=== PATIENT | female | born 1990 | race Caucasian/White ===

== ENCOUNTER 2019-01-19 00:41 | Emergency (ER) | payer OTHER, MEDICAID, SELFPAY ==
[2019-01-19 00:50] VITALS: BP 129/86; PULSE 84; RESP 16; TEMP 36.9; O2SAT 100; BMI 43.2
[2019-01-19] MEDS: METOCLOPRAMIDE 10 MG/2 ML INJ IV (01:33)
[2019-01-19] MEDS: SODIUM CHLORIDE 0.9% 1,000 ML 1000 ML IV (01:36)
[2019-01-19] MEDS: PANTOPRAZOLE 40 MG VIAL IV (01:36)
[2019-01-19 01:40] LABS: Add Manual Diff / Slide Review NO; Basophils Absolute Auto 100 /uL (0-100); Basophils Percent Auto 0.8 % (0-2); Eosinophils Absolute Auto 300 /uL (0-450); Eosinophils Percent Auto 3.4 % (2-4); Hematocrit 43.3 % (36-46); Hemoglobin 14.6 g/dL (12.0-16.0); Lymphocytes Absolute Auto 2200 /uL (1100-4500); Lymphocytes Percent Auto 25.5 % (25-40); Mean Corpuscular HGB Conc 33.8 % (30-36); Mean Corpuscular Hemoglobin 29.7 PG (26-34); Mean Corpuscular Volume 87.9 fL (80-100); Monocytes Absolute Auto 800 /uL (0-900); Monocytes Percent Auto 9.2 % (3-14); Neutrophils Absolute Auto 5300 /uL (1500-7000); Neutrophils Percent Auto 61.1 % (50-75); Platelet Count 227 X10^3/uL (150-400); Red Blood Cell Count 4.92 X10^6/uL (4.0-5.2); Red Cell Distribution Width 13.8 % (11.6-14.8); White Blood Cell Count 8.7 X10^3/uL (4.5-11.0)
--- NOTE | 2019-01-19 01:49 | ED_ITS ---
HPI - Nausea/Vomiting/Diarrhea General Chief complaint: Nausea/Vomiting/Diarrhea Stated complaint: N/V DEHYDRATED X6 DAYS Time Seen by Provider: 01/19/19 00:58 Source: patient and old records reviewed Mode of arrival: ambulatory Limitations: no limitations History of Present Illness HPI Narrative: Patient is a 29-year-old female who was diagnosed with gastroenteritis on 01/16/2019 by her PCP. She has been vomiting uncontrollably despite Zofran at home. She has diffuse overall abdominal pain no localization. She has not had fever or chills. No diarrhea. She says she just can't keep anything down in her throat feels like multiple sawdust drier sheets on inside. No one else is sick home. 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 MD complaint: nausea and vomiting Onset (ago): day(s) (5) Description of Vomiting: bilious Description of Diarrhea: none Associated Abdominal Pain: Yes Location of pain: diffuse Severity: moderate Quality: cramping Related Data Previous Rx's Medication Instructions Recorded metoclopramide HCl 5 mg PO Q8HR PRN #10 tab 01/19/19 Allergies Allergy/AdvReac Type Severity Reaction Status Date / Time iodine Allergy Verified 01/19/19 01:21 ketorolac [From Toradol] Allergy Verified 01/19/19 01:21 Sulfa (Sulfonamide Allergy Verified 01/19/19 01:21 Antibiotics) Review of Systems Review of Systems GENERAL: Denies chills, fatigue, malaise, fever, sweats, travel HEENT: Denies sinus pain, ear pain, sore throat, difficulty swallowing, neck pain RESPIRATORY: Denies dyspnea, cough, wheezing, hemoptysis, sputum. CARDIOVASCULAR: Denies chest pain, palpitations, orthopnea, edema GASTROINTESTINAL: See HPI : Denies dysuria, frequency, incontinence, hematuria, urinary retention, flank pain. MUSCULOSKELETAL: Denies weakness, joint pain, or bony pain SKIN: No rash, no erythema, no pruritus NEUROLOGIC: Denies weakness, dizziness, headache, numbness, change in speech, confusion PSYCHIATRIC: No concerning psychosocial issues. 12 point review of systems is negative except for those stated above and HPI [facility] Medical History Depression (Acute) Raynaud disease (Acute) Social History Smoking Status: Never smoker Social History Smoking Status: Never smoker Exam Initial Vital Signs Initial Vital Signs: Vital Signs Temperature 98.5 F 01/19/19 00:50 Pulse Rate 84 01/19/19 00:50 Respiratory Rate 16 01/19/19 00:50 Blood Pressure 129/86 01/19/19 00:50 Pulse Oximetry 100 01/19/19 00:50 GENERAL: Overweight well-appearing young female very talkative and in no acute distress. HEENT: Head atraumatic,EOMI, pupils reactive, CARDIOVASCULAR: Regular rate and rhythm without murmurs, rubs or gallops. RESPIRATORY: Breath sounds equal bilaterally, no wheezes rales or rhonchi. ABDOMEN: Soft, obese slight epigastric tenderness no guarding no rebound no lower abdominal pain EXTREMITIES: Normal range of motion, no clubbing or edema. Neurovascularly intact NEUROLOGICAL: Alert and oriented x4.Normal gait and speech. Cranial nerves II through XII grossly intact. SKIN: Warm, dry, no laceration, no petechiae, no rashes or lesions. Course Orders Ordered: ED Orders 01/19/19 01:05 Complete Blood Count AUTO DIFF Stat Comprehensive Metabolic Panel Stat Lipase Stat Discontinued Medications Sodium Chloride (Normal Saline 0.9%) 1,000 mls @ 1,000 mls/hr IV CONT BRANDI Last Infusion: 01/19/19 02:40 Dose: 1,000 mls/hr Admin: 01/19/19 01:36 Dose: 1,000 mls/hr Ketorolac Tromethamine (Toradol) 30 mg IV NOW ONE Stop: 01/19/19 01:20 Last Admin: 01/19/19 01:37 Dose: Not Given Metoclopramide HCl (Reglan) 10 mg IV NOW ONE Stop: 01/19/19 01:23 Last Admin: 01/19/19 01:33 Dose: 10 mg Ondansetron HCl (Zofran) 4 mg IV NOW ONE Stop: 01/19/19 01:20 Last Admin: 01/19/19 01:37 Dose: Not Given Pantoprazole Sodium (Protonix) 40 mg IV NOW ONE Stop: 01/19/19 01:20 Last Admin: 01/19/19 01:36 Dose: 40 mg Vital Signs - 8 hr 01/19/19 00:50 01/19/19 02:40 Temperature 98.5 F Pulse Rate 84 73 Respiratory Rate 16 16 Blood Pressure 129/86 129/86 Pulse Oximetry 100 100 MDM - Nausea/Vomiting/Diarrhea Lab Data Attestation: I reviewed the patient's lab results. Result diagrams: 01/19/19 01:05 01/19/19 01:05 Lab Results 01/19/19 01/19/19 Range/Units 01:05 01:05 WBC 8.7 (4.5-11.0) X10^3/uL RBC 4.92 (4.0-5.2) X10^6/uL Hgb 14.6 (12.0-16.0) g/dL Hct 43.3 (36-46) % MCV 87.9 (80-100) fL MCH 29.7 (26-34) PG MCHC 33.8 (30-36) % RDW 13.8 (11.6-14.8) % Plt Count 227 (150-400) X10^3/uL Neut % (Auto) 61.1 (50-75) % Lymph % (Auto) 25.5 (25-40) % [place] % (Auto) 9.2 (3-14) % Eos % (Auto) 3.4 (2-4) % Baso % (Auto) 0.8 (0-2) % Neut # (Auto) 5300 (0935-0686) /uL Lymph # (Auto) 2200 (7529-4480) /uL [place] # (Auto) 800 (0-900) /uL Eos # (Auto) 300 (0-450) /uL Baso # (Auto) 100 (0-100) /uL Sodium 142 (137-145) mmol/L Potassium 4.0 (3.4-5.1) mmol/L Chloride 104 (98-107) mmol/L Carbon Dioxide 28 (22-32) mmol/L BUN 14 (7-17) mg/dL Creatinine 1.00 (0.52-1.04) mg/dL Estimated GFR > 60.0 (>60) mL/min BUN/Creatinine Ratio 14.0 (6-22) Glucose 88 (70-100) mg/dL Calcium 9.2 (8.4-10.2) mg/dL Total Bilirubin 0.3 (0.2-1.3) mg/dL AST 26 (14-36) IU/L ALT 37 (9-52) IU/L Alkaline Phosphatase 62 (38-126) U/L Total Protein 7.5 (6.3-8.2) g/dL Albumin 4.3 (3.5-5.0) g/dL Globulin 3.2 (1.7-4.1) g/dL Albumin/Globulin Ratio 1.3 (1.0-2.8) Lipase 30 (23-300) U/L MDM Narrative Medical decision making narrative: PATIENT OVERALL FEELING MUCH BETTER AFTER REGLAN AND PROTONIX. TOLERATING ORAL FLUIDS. THERE IS NO SIGN OF DEHYDRATION AND HYPOKALEMIA DESPITE THE AMOUNT THAT SHE STATES SHE IS VOMITING. AT THIS TIME I SEE NO NEED FOR FURTHER IMAGING OR TESTING. The patient had negative UA and negative urine 2 days according to records which I reviewed myself, unfortunately no urine documented this visit, despite it being ordered. History signs and symptoms correlate with gastroenteritis. Discharge Plan Departure Patient Disposition: Home Clinical Impression: Gastroenteritis Discharge Date/Time: 01/19/19 02:35 Interventions: ED Discharge Assessment Last Done: 01/19/19 02:40 Instructions: DI for Dehydration -- Adult, DI for Viral Gastroenteritis -- Adult Activity Restrictions/Additional Instructions: 1) You have been diagnosed with gastroenteritis 2) What to do: Drink frequent but small amounts of fluids. I recommend Gatorade or a Gatorade-like product, as it has small amounts of sugar and salts that improve fluid retention. 3) Take medications as directed -Reglan 5 mg every 8 hours if needed for nausea vomiting 4) Follow up with your primary care provider in 2-3 days [and follow up with ortho, urology etc] 5) Return to ER if you should have any new or worsening symptoms such as, unable to hold down fluids despite use of anti-nausea medications and the small volume oral rehydration strategy. Prescriptions: New metoclopramide HCl 5 mg tablet 5 mg PO Q8HR PRN (Reason: nausea and vomiting) Qty: 10 RF: 0
[2019-01-19 01:58] LABS: Alanine Aminotransferase 37 IU/L (9-52); Albumin 4.3 g/dL (3.5-5.0); Albumin Globulin Ratio 1.3 (1.0-2.8); Alkaline Phosphatase 62 U/L (38-126); Aspartate Aminotransferase 26 IU/L (14-36); Bilirubin Total 0.3 mg/dL (0.2-1.3); Blood Urea Nitrogen 14 mg/dL (7-17); Calcium 9.2 mg/dL (8.4-10.2); Carbon Dioxide 28 mmol/L (22-32); Chloride 104 mmol/L (98-107); Estimated Glomerular Filt Rate > 60.0 mL/min (>60); Globulin 3.2 g/dL (1.7-4.1); Glucose 88 mg/dL (70-100); HEMOLYSIS < 15 (0-50); Lipase 30 U/L (23-300); Sodium 142 mmol/L (137-145); Total Protein 7.5 g/dL (6.3-8.2)
[2019-01-19 02:40] VITALS: BP 129/86; PULSE 73; RESP 16; O2SAT 100
== END 2019-01-19 02:35 | disposition home or self-care (01) ==
PROVIDERS: Emergency Provider Emergency Medicine
DX: K52.9 Noninfective gastroenteritis and colitis, unspecified (principal)
CPT/HCPCS: 36591; 80053; 83690; 85025; 96361; 96374; 96375; 99283; 99284; C9113; J2765

== ENCOUNTER 2019-03-13 22:17 | Emergency (ER) | payer OTHER, MEDICAID, SELFPAY ==
[2019-03-13 22:28] VITALS: BP 147/65; PULSE 98; RESP 15; TEMP 37.3; O2SAT 99; BMI 44.6
--- NOTE | 2019-03-13 22:35 | ED.NAVMDI ---
HPI - Nausea/Vomiting/Diarrhea General Chief complaint: Nausea/Vomiting/Diarrhea Stated complaint: COUGH, CONGESTION, VOMITING Time Seen by Provider: 03/13/19 22:21 Source: patient and family Mode of arrival: ambulatory Limitations: no limitations History of Present Illness HPI Narrative: 29-year-old female nonsmoker, otherwise healthy presents with a chief complaint multiple episodes of vomiting over the past few days she has blood-streaked emesis. She feels a bit fatigued and is lightheaded when she stands. She denies fever or shaking chills. She denies any history of liver, esophageal varices, blood thinners for heavy alcohol. She has no history of ulcers or gastritis. She does not take any significant NSAIDs. MD complaint: nausea Onset (ago): day(s) Description of Vomiting: blood-streaked Description of Diarrhea: none Severity: moderate Quality: cramping Relieving factors: none Exacerbating factors: eating Associated symptoms: nausea/vomiting Related Data Previous Rx's Medication Instructions Recorded metoclopramide HCl 5 mg PO Q8HR PRN #10 tab 01/19/19 ondansetron 4 mg PO TID-QID PRN #10 tab 03/14/19 promethazine-codeine 5 ml PO Q4-6H PRN #118 ml 03/14/19 Allergies Allergy/AdvReac Type Severity Reaction Status Date / Time iodine Allergy Verified 03/13/19 22:32 ketorolac [From Toradol] Allergy Verified 03/13/19 22:32 Sulfa (Sulfonamide Allergy Verified 03/13/19 22:32 Antibiotics) Review of Systems Constitutional Denies chills, Denies fever(s), Denies lethargy and Denies weakness Eyes Denies change in vision, Denies eye discharge, Denies irritation and Denies loss of vision ENT Ears, Nose, Mouth, and Throat: Denies change in voice, Denies neck pain and Denies sore throat Cardiovascular Denies chest pain, Denies irregular heart rhythm, Denies lightheadedness, Denies palpitations, Denies dyspnea, Denies dyspnea on exertion and Denies orthopnea Respiratory Denies cough, Denies dyspnea, Denies dyspnea on exertion and Denies wheezing Gastrointestinal Gastrointestinal: Denies abdominal pain, Denies change in bowel habits, Denies diarrhea, Reports nausea and Reports vomiting Genitourinary Denies hematuria, Denies flank pain, Denies urinary incontinence and Denies urinary urgency Musculoskeletal Denies neck pain Integumentary/Breasts Denies pruritus, Denies erythema, Denies rash and Denies wounds Neurologic Denies confusion, Denies loss of vision and Denies weakness Psychiatric Denies anxiety, Denies confusion, Denies depression, Denies homicidal ideation and Denies suicidal ideation Endocrine Denies palpitations Hematologic/Lymphatic Denies easy bruising Allergic/Immunologic Denies wheezing [facility] Social History Smoking Status: Never smoker Exam Narrative Exam Narrative: GENERAL:29F resting comfortably, no obvious distress HEAD: Atraumatic. Normocephalic. No temporal or scalp tenderness. EYES: Pupils equal round and reactive. Extraocular motions intact. No scleral icterus. No injection or drainage. ENT: Nose without bleeding, purulent drainage or septal hematoma. Throat without erythema, tonsillar hypertrophy or exudate. Uvula midline. Airway patent. NECK: Trachea midline. No JVD or lymphadenopathy. Supple, nontender, no meningeal signs. CARDIOVASCULAR: Regular rate and rhythm without murmurs, gallops, or rubs. RESPIRATORY: Clear to auscultation. Breath sounds equal bilaterally. No wheezes, rales, or rhonchi. GASTROINTESTINAL: Abdomen soft, non-tender, nondistended. No hepato-splenomegaly, or palpable masses. No guarding. EXTREMITIES: No clubbing, cyanosis, or edema. No joint tenderness, effusion, or edema noted. BACK: Nontender without deformity or crepitance. No flank tenderness. NEURO: AOx3. SKIN: No rash or erythema. Initial Vital Signs Initial Vital Signs: Vital Signs Temperature 99.1 F 03/13/19 22:28 Pulse Rate 98 H 03/13/19 22:28 Respiratory Rate 15 03/13/19 22:28 Blood Pressure 147/65 H 03/13/19 22:28 Pulse Oximetry 99 03/13/19 22:28 Course Orders Ordered: ED Orders 03/13/19 22:48 XR acute abdomen series Stat 03/13/19 23:30 Complete Blood Count AUTO DIFF Stat Comprehensive Metabolic Panel Stat Partial Thromboplastin Time Stat Prothrombin Time INR Stat Type and Screen Stat Discontinued Medications Acetaminophen/Codeine Phosphate (Tylenol Oral [place] 120-12 Mg/5 Ml) 10 ml PO NOW ONE Stop: 03/14/19 00:18 Last Admin: 03/14/19 00:34 Dose: 10 ml Sodium Chloride (Normal Saline 0.9%) 1,000 mls @ 1,000 mls/hr IV BOLUS ONE Stop: 03/13/19 23:46 Last Infusion: 03/14/19 00:35 Dose: 0 mls/hr Infusion: 03/13/19 23:33 Dose: 1,000 mls/hr Infusion: 03/13/19 23:20 Dose: 0 mls/hr Admin: 03/13/19 23:20 Dose: 1,000 mls/hr Ondansetron HCl (Zofran) 4 mg IV NOW ONE Stop: 03/13/19 22:48 Last Admin: 03/13/19 23:20 Dose: 4 mg Ondansetron HCl (Zofran Odt Prepack) 1 bottle MISC SEEINSTR ONE Stop: 03/14/19 00:18 Last Admin: 03/14/19 00:34 Dose: 1 bottle Pantoprazole Sodium (Protonix) 40 mg IV NOW ONE Stop: 03/13/19 22:48 Last Admin: 03/13/19 23:20 Dose: 40 mg Vital Signs - 8 hr 03/13/19 22:28 03/14/19 00:38 Temperature 99.1 F Pulse Rate 98 H 92 H Respiratory Rate 15 Blood Pressure 147/65 H 138/86 Pulse Oximetry 99 100 MDM - Nausea/Vomiting/Diarrhea Lab Data Result diagrams: 03/13/19 23:30 03/13/19 23:30 Lab Results 03/13/19 03/13/19 03/13/19 Range/Units 23:30 23:30 23:30 WBC 13.3 H (4.5-11.0) X10^3/uL RBC 5.19 (4.0-5.2) X10^6/uL Hgb 15.2 (12.0-16.0) g/dL Hct 45.7 (36-46) % MCV 88.0 (80-100) fL MCH 29.3 (26-34) PG MCHC 33.3 (30-36) % RDW 13.2 (11.6-14.8) % Plt Count 231 (150-400) X10^3/uL Neut % (Auto) 70.9 (50-75) % Lymph % (Auto) 18.2 L (25-40) % [place] % (Auto) 8.4 (3-14) % Eos % (Auto) 1.8 L (2-4) % Baso % (Auto) 0.7 (0-2) % Neut # (Auto) 9400 H (1368-2359) /uL Lymph # (Auto) 2400 (9689-4600) /uL [place] # (Auto) 1100 H (0-900) /uL Eos # (Auto) 200 (0-450) /uL Baso # (Auto) 100 (0-100) /uL PT 10.3 (10.1-12.7) SECONDS INR 0.9 (0.9-1.3) APTT 33 (26.4-36.2) SECONDS Sodium 139 (137-145) mmol/L Potassium 4.0 (3.4-5.1) mmol/L Chloride 102 (98-107) mmol/L Carbon Dioxide 30 (22-32) mmol/L BUN 14 (7-17) mg/dL Creatinine 0.90 (0.52-1.04) mg/dL Estimated GFR > 60.0 (>60) mL/min BUN/Creatinine Ratio 15.6 (6-22) Glucose 94 (70-100) mg/dL Calcium 9.7 (8.4-10.2) mg/dL Total Bilirubin 0.3 (0.2-1.3) mg/dL AST 21 (14-36) IU/L ALT 16 (9-52) IU/L Alkaline Phosphatase 79 (38-126) U/L Total Protein 7.7 (6.3-8.2) g/dL Albumin 4.4 (3.5-5.0) g/dL Globulin 3.3 (1.7-4.1) g/dL Albumin/Globulin Ratio 1.3 (1.0-2.8) Blood Type Antibody Screen 03/13/19 Range/Units 23:30 WBC (4.5-11.0) X10^3/uL RBC (4.0-5.2) X10^6/uL Hgb (12.0-16.0) g/dL Hct (36-46) % MCV (80-100) fL MCH (26-34) PG MCHC (30-36) % RDW (11.6-14.8) % Plt Count (150-400) X10^3/uL Neut % (Auto) (50-75) % Lymph % (Auto) (25-40) % [place] % (Auto) (3-14) % Eos % (Auto) (2-4) % Baso % (Auto) (0-2) % Neut # (Auto) (4222-7916) /uL Lymph # (Auto) (0770-2751) /uL [place] # (Auto) (0-900) /uL Eos # (Auto) (0-450) /uL Baso # (Auto) (0-100) /uL PT (10.1-12.7) SECONDS INR (0.9-1.3) APTT (26.4-36.2) SECONDS Sodium (137-145) mmol/L Potassium (3.4-5.1) mmol/L Chloride (98-107) mmol/L Carbon Dioxide (22-32) mmol/L BUN (7-17) mg/dL Creatinine (0.52-1.04) mg/dL Estimated GFR (>60) mL/min BUN/Creatinine Ratio (6-22) Glucose (70-100) mg/dL Calcium (8.4-10.2) mg/dL Total Bilirubin (0.2-1.3) mg/dL AST (14-36) IU/L ALT (9-52) IU/L Alkaline Phosphatase (38-126) U/L Total Protein (6.3-8.2) g/dL Albumin (3.5-5.0) g/dL Globulin (1.7-4.1) g/dL Albumin/Globulin Ratio (1.0-2.8) Blood Type A Positive Antibody Screen Negative Discharge Plan Departure Patient Disposition: Home Clinical Impression: Vomiting Qualifiers: Vomiting type: unspecified Vomiting Intractability: non-intractable Nausea presence: with nausea Qualified Code(s): R11.2 - Nausea with vomiting, unspecified Discharge Date/Time: 03/14/19 00:39 Interventions: ED Discharge Assessment Last Done: 03/14/19 00:38 Instructions: DI for Vomiting -- Adult Activity Restrictions/Additional Instructions: *You have been diagnosed with [ cough with vomiting ] *What to do: *Take medications as directed *Follow up with your primary care provider in 2-3 days, call for an appointment. Let them know you were seen in the Emergency Department and that we ask that you be seen in follow up *Return to ER if you should have any new, worsening or concerning symptoms Prescriptions: New ondansetron 4 mg tablet,disintegrating 4 mg PO TID-QID PRN (Reason: nausea and vomiting) Qty: 10 RF: 0 promethazine-codeine 6.25-10 mg/5 mL syrup 5 ml PO Q4-6H PRN (Reason: cough) Qty: 118 RF: 0 No Action metoclopramide HCl 5 mg tablet 5 mg PO Q8HR PRN (Reason: nausea and vomiting) Qty: 10 RF: 0
--- NOTE | 2019-03-13 22:48 | DI.RAD.S_ITS ---
PROCEDURE: XR ACUTE ABDOMEN SERIES INDICATIONS: Abdominal pain TECHNIQUE: One view chest and two views of the abdomen were acquired. COMPARISON: None. FINDINGS: Surgical changes and devices: None. Chest: Lungs are clear. Heart size is normal. No pleural effusions. No pneumoperitoneum. Abdomen: Bowel gas pattern is normal except for mild to moderate colonic obstipation. No suspicious calcifications. Visualized solid organ contours appear normal. Bones: No suspicious bony lesions. IMPRESSION: Normal for age except for mild to moderate colonic obstipation, a definite source of current abdominal pain symptoms is not seen. Dictated by: Gilberto Adame M.D. on 03/14/2019 at 8:14 Approved by: Gilberto Adame M.D. on 03/14/2019 at 8:21
[2019-03-13] MEDS: ONDANSETRON 4 MG/2 ML INJ IV (23:20)
[2019-03-13] MEDS: PANTOPRAZOLE 40 MG VIAL IV (23:20)
[2019-03-13] MEDS: SODIUM CHLORIDE 0.9% 1,000 ML 1000 ML IV (23:20)
[2019-03-13 23:41] LABS: Add Manual Diff / Slide Review NO; Basophils Absolute Auto 100 /uL (0-100); Basophils Percent Auto 0.7 % (0-2); Eosinophils Absolute Auto 200 /uL (0-450); Eosinophils Percent Auto 1.8 % (2-4); Hematocrit 45.7 % (36-46); Hemoglobin 15.2 g/dL (12.0-16.0); Lymphocytes Absolute Auto 2400 /uL (1100-4500); Lymphocytes Percent Auto 18.2 % (25-40); Mean Corpuscular HGB Conc 33.3 % (30-36); Mean Corpuscular Hemoglobin 29.3 PG (26-34); Monocytes Absolute Auto 1100 /uL (0-900); Monocytes Percent Auto 8.4 % (3-14); Neutrophils Absolute Auto 9400 /uL (1500-7000); Neutrophils Percent Auto 70.9 % (50-75); Platelet Count 231 X10^3/uL (150-400); Red Blood Cell Count 5.19 X10^6/uL (4.0-5.2); Red Cell Distribution Width 13.2 % (11.6-14.8); White Blood Cell Count 13.3 X10^3/uL (4.5-11.0)
--- NOTE | 2019-03-13 23:48 | ED_ITS ---
HPI - Nausea/Vomiting/Diarrhea General Chief complaint: Nausea/Vomiting/Diarrhea Stated complaint: COUGH, CONGESTION, VOMITING Time Seen by Provider: 03/13/19 22:21 Source: patient and family Mode of arrival: ambulatory Limitations: no limitations History of Present Illness HPI Narrative: 29-year-old female nonsmoker, otherwise healthy presents with a chief complaint multiple episodes of vomiting over the past few days she has blood-streaked emesis. She feels a bit fatigued and is lightheaded when she stands. She denies fever or shaking chills. She denies any history of liver, esophageal varices, blood thinners for heavy alcohol. She has no history of ulcers or gastritis. She does not take any significant NSAIDs. MD complaint: nausea Onset (ago): day(s) Description of Vomiting: blood-streaked Description of Diarrhea: none Severity: moderate Quality: cramping Relieving factors: none Exacerbating factors: eating Associated symptoms: nausea/vomiting Related Data Previous Rx's Medication Instructions Recorded metoclopramide HCl 5 mg PO Q8HR PRN #10 tab 01/19/19 ondansetron 4 mg PO TID-QID PRN #10 tab 03/14/19 promethazine-codeine 5 ml PO Q4-6H PRN #118 ml 03/14/19 Allergies Allergy/AdvReac Type Severity Reaction Status Date / Time iodine Allergy Verified 03/13/19 22:32 ketorolac [From Toradol] Allergy Verified 03/13/19 22:32 Sulfa (Sulfonamide Allergy Verified 03/13/19 22:32 Antibiotics) Review of Systems Constitutional Denies chills, Denies fever(s), Denies lethargy and Denies weakness Eyes Denies change in vision, Denies eye discharge, Denies irritation and Denies loss of vision ENT Ears, Nose, Mouth, and Throat: Denies change in voice, Denies neck pain and Denies sore throat Cardiovascular Denies chest pain, Denies irregular heart rhythm, Denies lightheadedness, Denies palpitations, Denies dyspnea, Denies dyspnea on exertion and Denies orthopnea Respiratory Denies cough, Denies dyspnea, Denies dyspnea on exertion and Denies wheezing Gastrointestinal Gastrointestinal: Denies abdominal pain, Denies change in bowel habits, Denies diarrhea, Reports nausea and Reports vomiting Genitourinary Denies hematuria, Denies flank pain, Denies urinary incontinence and Denies urinary urgency Musculoskeletal Denies neck pain Integumentary/Breasts Denies pruritus, Denies erythema, Denies rash and Denies wounds Neurologic Denies confusion, Denies loss of vision and Denies weakness Psychiatric Denies anxiety, Denies confusion, Denies depression, Denies homicidal ideation and Denies suicidal ideation Endocrine Denies palpitations Hematologic/Lymphatic Denies easy bruising Allergic/Immunologic Denies wheezing [facility] Social History Smoking Status: Never smoker Exam Narrative Exam Narrative: GENERAL:29F resting comfortably, no obvious distress HEAD: Atraumatic. Normocephalic. No temporal or scalp tenderness. EYES: Pupils equal round and reactive. Extraocular motions intact. No scleral icterus. No injection or drainage. ENT: Nose without bleeding, purulent drainage or septal hematoma. Throat without erythema, tonsillar hypertrophy or exudate. Uvula midline. Airway patent. NECK: Trachea midline. No JVD or lymphadenopathy. Supple, nontender, no meni ngeal signs. CARDIOVASCULAR: Regular rate and rhythm without murmurs, gallops, or rubs. RESPIRATORY: Clear to auscultation. Breath sounds equal bilaterally. No wheezes, rales, or rhonchi. GASTROINTESTINAL: Abdomen soft, non-tender, nondistended. No hepato- splenomegaly, or palpable masses. No guarding. EXTREMITIES: No clubbing, cyanosis, or edema. No joint tenderness, effusion, or edema noted. BACK: Nontender without deformity or crepitance. No flank tenderness. NEURO: AOx3. SKIN: No rash or erythema. Initial Vital Signs Initial Vital Signs: Vital Signs Temperature 99.1 F 03/13/19 22:28 Pulse Rate 98 H 03/13/19 22:28 Respiratory Rate 15 03/13/19 22:28 Blood Pressure 147/65 H 03/13/19 22:28 Pulse Oximetry 99 03/13/19 22:28 Course Orders Ordered: ED Orders 03/13/19 22:48 XR acute abdomen series Stat 03/13/19 23:30 Complete Blood Count AUTO DIFF Stat Comprehensive Metabolic Panel Stat Partial Thromboplastin Time Stat Prothrombin Time INR Stat Type and Screen Stat Discontinued Medications Acetaminophen/Codeine Phosphate (Tylenol Oral Sylwia 120-12 Mg/5 Ml) 10 ml PO NOW ONE Stop: 03/14/19 00:18 Last Admin: 03/14/19 00:34 Dose: 10 ml Sodium Chloride (Normal Saline 0.9%) 1,000 mls @ 1,000 mls/hr IV BOLUS ONE Stop: 03/13/19 23:46 Last Infusion: 03/14/19 00:35 Dose: 0 mls/hr Infusion: 03/13/19 23:33 Dose: 1,000 mls/hr Infusion: 03/13/19 23:20 Dose: 0 mls/hr Admin: 03/13/19 23:20 Dose: 1,000 mls/hr Ondansetron HCl (Zofran) 4 mg IV NOW ONE Stop: 03/13/19 22:48 Last Admin: 03/13/19 23:20 Dose: 4 mg Ondansetron HCl (Zofran Odt Prepack) 1 bottle MISC SEEINSTR ONE Stop: 03/14/19 00:18 Last Admin: 03/14/19 00:34 Dose: 1 bottle Pantoprazole Sodium (Protonix) 40 mg IV NOW ONE Stop: 03/13/19 22:48 Last Admin: 03/13/19 23:20 Dose: 40 mg Vital Signs - 8 hr 03/13/19 22:28 03/14/19 00:38 Temperature 99.1 F Pulse Rate 98 H 92 H Respiratory Rate 15 Blood Pressure 147/65 H 138/86 Pulse Oximetry 99 100 MDM - Nausea/Vomiting/Diarrhea Lab Data Result diagrams: 03/13/19 23:30 03/13/19 23:30 Lab Results 03/13/19 03/13/19 03/13/19 Range/Units 23:30 23:30 23:30 WBC 13.3 H (4.5-11.0) X10^3/uL RBC 5.19 (4.0-5.2) X10^6/uL Hgb 15.2 (12.0-16.0) g/dL Hct 45.7 (36-46) % MCV 88.0 (80-100) fL MCH 29.3 (26-34) PG MCHC 33.3 (30-36) % RDW 13.2 (11.6-14.8) % Plt Count 231 (150-400) X10^3/uL Neut % (Auto) 70.9 (50-75) % Lymph % (Auto) 18.2 L (25-40) % [place] % (Auto) 8.4 (3-14) % Eos % (Auto) 1.8 L (2-4) % Baso % (Auto) 0.7 (0-2) % Neut # (Auto) 9400 H (0595-7911) /uL Lymph # (Auto) 2400 (0929-0861) /uL Norton # (Auto) 1100 H (0-900) /uL Eos # (Auto) 200 (0-450) /uL Baso # (Auto) 100 (0-100) /uL PT 10.3 (10.1-12.7) SECONDS INR 0.9 (0.9-1.3) APTT 33 (26.4-36.2) SECONDS Sodium 139 (137-145) mmol/L Potassium 4.0 (3.4-5.1) mmol/L Chloride 102 (98-107) mmol/L Carbon Dioxide 30 (22-32) mmol/L BUN 14 (7-17) mg/dL Creatinine 0.90 (0.52-1.04) mg/dL Estimated GFR > 60.0 (>60) mL/min BUN/Creatinine Ratio 15.6 (6-22) Glucose 94 (70-100) mg/dL Calcium 9.7 (8.4-10.2) mg/dL Total Bilirubin 0.3 (0.2-1.3) mg/dL AST 21 (14-36) IU/L ALT 16 (9-52) IU/L Alkaline Phosphatase 79 (38-126) U/L Total Protein 7.7 (6.3-8.2) g/dL Albumin 4.4 (3.5-5.0) g/dL Globulin 3.3 (1.7-4.1) g/dL Albumin/Globulin Ratio 1.3 (1.0-2.8) Blood Type Antibody Screen 03/13/19 Range/Units 23:30 WBC (4.5-11.0) X10^3/uL RBC (4.0-5.2) X10^6/uL Hgb (12.0-16.0) g/dL Hct (36-46) % MCV (80-100) fL MCH (26-34) PG MCHC (30-36) % RDW (11.6-14.8) % Plt Count (150-400) X10^3/uL Neut % (Auto) (50-75) % Lymph % (Auto) (25-40) % Norton % (Auto) (3-14) % Eos % (Auto) (2-4) % Baso % (Auto) (0-2) % Neut # (Auto) (1769-5786) /uL Lymph # (Auto) (0805-0582) /uL Norton # (Auto) (0-900) /uL Eos # (Auto) (0-450) /uL Baso # (Auto) (0-100) /uL PT (10.1-12.7) SECONDS INR (0.9-1.3) APTT (26.4-36.2) SECONDS Sodium (137-145) mmol/L Potassium (3.4-5.1) mmol/L Chloride (98-107) mmol/L Carbon Dioxide (22-32) mmol/L BUN (7-17) mg/dL Creatinine (0.52-1.04) mg/dL Estimated GFR (>60) mL/min BUN/Creatinine Ratio (6-22) Glucose (70-100) mg/dL Calcium (8.4-10.2) mg/dL Total Bilirubin (0.2-1.3) mg/dL AST (14-36) IU/L ALT (9-52) IU/L Alkaline Phosphatase (38-126) U/L Total Protein (6.3-8.2) g/dL Albumin (3.5-5.0) g/dL Globulin (1.7-4.1) g/dL Albumin/Globulin Ratio (1.0-2.8) Blood Type A Positive Antibody Screen Negative Discharge Plan Departure Patient Disposition: Home Clinical Impression: Vomiting Qualifiers: Vomiting type: unspecified Vomiting Intractability: non-intractable Nausea presence: with nausea Qualified Code(s): R11.2 - Nausea with vomiting, unspecified Discharge Date/Time: 03/14/19 00:39 Interventions: ED Discharge Assessment Last Done: 03/14/19 00:38 Instructions: DI for Vomiting -- Adult Activity Restrictions/Additional Instructions: *You have been diagnosed with [ cough with vomiting ] *What to do: *Take medications as directed *Follow up with your primary care provider in 2-3 days, call for an appointment. Let them know you were seen in the Emergency Department and that we ask that you be seen in follow up *Return to ER if you should have any new, worsening or concerning symptoms Prescriptions: New ondansetron 4 mg tablet,disintegrating 4 mg PO TID-QID PRN (Reason: nausea and vomiting) Qty: 10 RF: 0 promethazine-codeine 6.25-10 mg/5 mL syrup 5 ml PO Q4-6H PRN (Reason: cough) Qty: 118 RF: 0 No Action metoclopramide HCl 5 mg tablet 5 mg PO Q8HR PRN (Reason: nausea and vomiting) Qty: 10 RF: 0
[2019-03-13 23:50] LABS: INR 0.9 (0.9-1.3); Prothrombin Time 10.3 SECONDS (10.1-12.7)
[2019-03-13 23:52] LABS: PTT Partial Thromboplastin Tim 33 SECONDS (26.4-36.2)
[2019-03-13 23:53] LABS: Alanine Aminotransferase 16 IU/L (9-52); Albumin 4.4 g/dL (3.5-5.0); Albumin Globulin Ratio 1.3 (1.0-2.8); Alkaline Phosphatase 79 U/L (38-126); Aspartate Aminotransferase 21 IU/L (14-36); BUN Creatinine Ratio 15.6 (6-22); Bilirubin Total 0.3 mg/dL (0.2-1.3); Blood Urea Nitrogen 14 mg/dL (7-17); Calcium 9.7 mg/dL (8.4-10.2); Carbon Dioxide 30 mmol/L (22-32); Chloride 102 mmol/L (98-107); Estimated Glomerular Filt Rate > 60.0 mL/min (>60); Globulin 3.3 g/dL (1.7-4.1); Glucose 94 mg/dL (70-100); HEMOLYSIS < 15 (0-50); Sodium 139 mmol/L (137-145); Total Protein 7.7 g/dL (6.3-8.2)
[2019-03-14] MEDS: ONDANSETRON 4 MG ODT PREPACK 1 BOTTLE MISC (00:34)
[2019-03-14] MEDS: ACETAMINOPHEN/CODEINE SOLN 5 ML SOLUTION 10 ML PO (00:34)
[2019-03-14 00:38] VITALS: BP 138/86; PULSE 92; O2SAT 100
== END 2019-03-14 00:39 | disposition home or self-care (01) ==
PROVIDERS: Emergency Provider Emergency Medicine
DX: R11.2 Nausea with vomiting, unspecified (principal)
CPT/HCPCS: 36415; 36591; 74022; 80053; 85025; 85610; 85730; 86850; 86900; 86901; 96361; 96374; 96375; 99283; 99284; C9113; J2405

== ENCOUNTER 2019-03-26 22:24 | Emergency (ER) | payer OTHER, MEDICAID, SELFPAY ==
[2019-03-26 22:34] VITALS: BP 151/105; PULSE 115; RESP 20; TEMP 37.3; O2SAT 100; BMI 42.9
[2019-03-26 22:42] VITALS: PULSE 116; RESP 20; O2SAT 97
[2019-03-26] MEDS: ALBUTEROL 2.5 MG/3 ML NEB (ADULT) INH (22:42)
--- NOTE | 2019-03-27 00:21 | DI.RAD.S_ITS ---
PROCEDURE: XR CHEST 2V INDICATIONS: shortness and cough TECHNIQUE: 2 views of the chest were acquired. COMPARISON: None. FINDINGS: Surgical changes and devices: None. Lungs and pleura: Low lung volumes with scattered subsegmental atelectasis/scarring. No pleural effusions or pneumothorax. Mediastinum: Mediastinal contours are normal. Heart size is normal. Bones and chest wall: No suspicious bony abnormalities. Soft tissues appear unremarkable. IMPRESSION: No acute disease Dictated by: Petros Pickard M.D. on 03/27/2019 at 8:58 Approved by: Petros Pickard M.D. on 03/27/2019 at 9:05
--- NOTE | 2019-03-27 00:24 | ED_ITS ---
HPI - URI/Sore Throat General Chief Complaint: Upper Respiratory Symptoms Stated Complaint: FEVER 105 COUGHING UP SOB Time Seen by Provider: 03/27/19 00:12 Source: patient Mode of arrival: ambulatory History of Present Illness HPI Narrative: Patient is a 29-year-old female presents with coughing on going she says for last 3 weeks. She says she was seen evaluated here on March 14 2019. She was given cough syrup with codeine she says that really has not been helping. She has since been seen by her primary care doctor who started her on Augmentin and prednisone. She says that really isn't helping either it is dry nonproductive. She sometimes has hematemesis after coughing so hard. She feels like she pulled something in her side from coughing so hard. She sometimes coughs so hard that she vomits. In fact she really has been able to keep much down. She has been ordered albuterol by nursing she says that really has not helped her at all she still has a pretty dry nonproductive hacking cough. She says that she has had fever and chills as well. She actually has appointment with her PCP tomorrow. MD Complaint: fever and cough Duration: constant Related Data Previous Rx's Medication Instructions Recorded metoclopramide HCl 5 mg PO Q8HR PRN #10 tab 01/19/19 ondansetron 4 mg PO TID-QID PRN #10 tab 03/14/19 promethazine-codeine 5 ml PO Q4-6H PRN #118 ml 03/14/19 Allergies Allergy/AdvReac Type Severity Reaction Status Date / Time iodine Allergy Verified 03/13/19 22:32 ketorolac [From Toradol] Allergy Verified 03/13/19 22:32 Sulfa (Sulfonamide Allergy Verified 03/13/19 22:32 Antibiotics) Review of Systems Review of Systems GENERAL: Denies chills, fatigue, malaise, fever, sweats, travel HEENT: Denies sinus pain, ear pain, sore throat, difficulty swallowing, neck pain RESPIRATORY: See HPI CARDIOVASCULAR: Denies chest pain, palpitations, orthopnea, edema GASTROINTESTINAL: Denies nausea, vomiting, abdominal pain, diarrhea, constipation, melena. : Denies dysuria, frequency, incontinence, hematuria, urinary retention, flank pain. MUSCULOSKELETAL: Denies weakness, joint pain, or bony pain SKIN: No rash, no erythema, no pruritus NEUROLOGIC: Denies weakness, dizziness, headache, numbness, change in speech, confusion PSYCHIATRIC: No concerning psychosocial issues. 12 point review of systems is negative except for those stated above and HPI [facility] Medical History Depression (Acute) Raynaud disease (Acute) Social History Smoking Status: Never smoker Social History Smoking Status: Never smoker Exam Initial Vital Signs Initial Vital Signs: Vital Signs Temperature 99.2 F 03/26/19 22:34 Pulse Rate 115 H 03/26/19 22:34 Respiratory Rate 20 03/26/19 22:34 Blood Pressure 151/105 H 03/26/19 22:34 Pulse Oximetry 100 03/26/19 22:34 GENERAL: Overweight alert well-appearing female and in no acute distress. HEENT: Head atraumatic,EOMI, pupils reactive, CARDIOVASCULAR: Regular rate and rhythm without murmurs, rubs or gallops. RESPIRATORY: Dry hacking nonproductive cough noted. No obvious respiratory distress ABDOMEN: Soft, nontender. Normoactive bowel sounds all 4 quadrants. No guarding or rebound. EXTREMITIES: Normal range of motion, no clubbing or edema. Neurovascularly intact NEUROLOGICAL: Alert and oriented x4.Normal gait and speech. Cranial nerves II through XII grossly intact. SKIN: Warm, dry, no laceration, no petechiae, no rashes or lesions. Course Orders Ordered: ED Orders 03/27/19 00:21 XR chest 2V Stat 03/27/19 00:50 Complete Blood Count AUTO DIFF Stat Comprehensive Metabolic Panel Stat Discontinued Medications Albuterol (Ventolin) 2.5 mg INH NOW ONE Stop: 03/26/19 22:42 Last Admin: 03/26/19 22:42 Dose: 2.5 mg Albuterol (Ventolin Hfa Prepack) 1 box MISC SEEINSTR ONE Stop: 03/27/19 02:06 Last Admin: 03/27/19 02:06 Dose: 1 box Sodium Chloride (Normal Saline 0.9%) 1,000 mls @ 1,000 mls/hr IV BOLUS ONE Stop: 03/27/19 01:20 Last Infusion: 03/27/19 02:15 Dose: 0 mls/hr Admin: 03/27/19 00:50 Dose: 1,000 mls/hr Methylprednisolone (Solu-Medrol 125 Mg Vial) 125 mg IV NOW ONE Stop: 03/27/19 00:22 Last Admin: 03/27/19 00:50 Dose: 125 mg Vital Signs - 8 hr 03/26/19 22:34 03/26/19 22:42 03/27/19 02:07 Temperature 99.2 F Pulse Rate 115 H 116 H 87 Respiratory Rate 20 20 15 Blood Pressure 151/105 H Blood Pressure [Right Arm] 122/74 Pulse Oximetry 100 97 100 MDM - URI/Sore Throat Lab Data Attestation: I reviewed the patient's lab results. Result diagrams: 03/27/19 00:50 03/27/19 00:50 Lab Results 03/27/19 03/27/19 Range/Units 00:50 00:50 WBC 15.2 H (4.5-11.0) X10^3/uL RBC 5.25 H (4.0-5.2) X10^6/uL Hgb 15.6 (12.0-16.0) g/dL Hct 45.9 (36-46) % MCV 87.4 (80-100) fL MCH 29.6 (26-34) PG MCHC 33.9 (30-36) % RDW 13.7 (11.6-14.8) % Plt Count 254 (150-400) X10^3/uL Neut % (Auto) 64.4 (50-75) % Lymph % (Auto) 25.7 (25-40) % [place] % (Auto) 8.0 (3-14) % Eos % (Auto) 1.3 L (2-4) % Baso % (Auto) 0.6 (0-2) % Neut # (Auto) 9800 H (6267-3165) /uL Lymph # (Auto) 3900 (1939-4408) /uL [place] # (Auto) 1200 H (0-900) /uL Eos # (Auto) 200 (0-450) /uL Baso # (Auto) 100 (0-100) /uL Sodium 142 (137-145) mmol/L Potassium 4.2 (3.4-5.1) mmol/L Chloride 106 (98-107) mmol/L Carbon Dioxide 25 (22-32) mmol/L BUN 20 H (7-17) mg/dL Creatinine 1.10 H (0.52-1.04) mg/dL Estimated GFR 58.3 L (>60) mL/min BUN/Creatinine Ratio 18.2 (6-22) Glucose 83 (70-100) mg/dL Calcium 9.4 (8.4-10.2) mg/dL Total Bilirubin 0.6 (0.2-1.3) mg/dL AST 34 (14-36) IU/L ALT 22 (9-52) IU/L Alkaline Phosphatase 75 (38-126) U/L Total Protein 8.4 H (6.3-8.2) g/dL Albumin 4.5 (3.5-5.0) g/dL Globulin 3.9 (1.7-4.1) g/dL Albumin/Globulin Ratio 1.2 (1.0-2.8) Imaging Data Chest x-ray: Attestation: I personally reviewed and interpreted this imaging study as follows: My impression: No acute cardiopulmonary process MDM Narrative Medical decision making narrative: The patient is obviously having a bronchospastic like cough. She is given albuterol actually did seem to help a fter a while. His she has an appointment with her PCP in the morning. Her heart rate also improved. She was already given prednisone by did give her a dose of the Solu-Medrol. At this time his leukocytosis is likely due to the prednisone that she is on. I do not believe her to have sinus symptoms consistent with pulmonary embolism. Discharge Plan Departure Patient Disposition: Home Clinical Impression: Bronchitis Discharge Date/Time: 03/27/19 02:20 Interventions: ED Discharge Assessment Last Done: 03/27/19 02:19 Instructions: DI for Acute Bronchitis Activity Restrictions/Additional Instructions: *You have been diagnosed with bronchitis *What to do: For x-ray today is clear however I recommend that he finish taking your antibiotics. *Continue to take medications as directed Albuterol inhaler with with spacer 1-2 puffs every 4 hours if needed for coughing spells or shortness of *Follow up with your primary care provider in 2-3 days and follow up with ortho, urology etc *Return to ER if you should have increasing shortness of breath or any new, worsening or concerning symptoms Prescriptions: No Action metoclopramide HCl 5 mg tablet 5 mg PO Q8HR PRN (Reason: nausea and vomiting) Qty: 10 RF: 0 ondansetron 4 mg tablet,disintegrating 4 mg PO TID-QID PRN (Reason: nausea and vomiting) Qty: 10 RF: 0 promethazine-codeine 6.25-10 mg/5 mL syrup 5 ml PO Q4-6H PRN (Reason: cough) Qty: 118 RF: 0
[2019-03-27] MEDS: methylPREDNISolone 125 MG/2 ML VIAL IV (00:50)
[2019-03-27] MEDS: SODIUM CHLORIDE 0.9% 1,000 ML 1000 ML IV (00:50)
[2019-03-27 01:04] LABS: Add Manual Diff / Slide Review NO; Basophils Absolute Auto 100 /uL (0-100); Basophils Percent Auto 0.6 % (0-2); Eosinophils Absolute Auto 200 /uL (0-450); Eosinophils Percent Auto 1.3 % (2-4); Hematocrit 45.9 % (36-46); Hemoglobin 15.6 g/dL (12.0-16.0); Lymphocytes Absolute Auto 3900 /uL (1100-4500); Lymphocytes Percent Auto 25.7 % (25-40); Mean Corpuscular HGB Conc 33.9 % (30-36); Mean Corpuscular Hemoglobin 29.6 PG (26-34); Mean Corpuscular Volume 87.4 fL (80-100); Monocytes Absolute Auto 1200 /uL (0-900); Neutrophils Absolute Auto 9800 /uL (1500-7000); Neutrophils Percent Auto 64.4 % (50-75); Platelet Count 254 X10^3/uL (150-400); Red Blood Cell Count 5.25 X10^6/uL (4.0-5.2); Red Cell Distribution Width 13.7 % (11.6-14.8); White Blood Cell Count 15.2 X10^3/uL (4.5-11.0)
[2019-03-27 01:10] LABS: Chloride 106 mmol/L (98-107)
[2019-03-27 01:13] LABS: Alanine Aminotransferase 22 IU/L (9-52); Albumin 4.5 g/dL (3.5-5.0); Albumin Globulin Ratio 1.2 (1.0-2.8); Alkaline Phosphatase 75 U/L (38-126); Aspartate Aminotransferase 34 IU/L (14-36); BUN Creatinine Ratio 18.2 (6-22); Bilirubin Total 0.6 mg/dL (0.2-1.3); Blood Urea Nitrogen 20 mg/dL (7-17); Calcium 9.4 mg/dL (8.4-10.2); Carbon Dioxide 25 mmol/L (22-32); Estimated Glomerular Filt Rate 58.3 mL/min (>60); Globulin 3.9 g/dL (1.7-4.1); Glucose 83 mg/dL (70-100); Sodium 142 mmol/L (137-145); Total Protein 8.4 g/dL (6.3-8.2)
[2019-03-27 01:15] LABS: HEMOLYSIS 132 (0-50)
[2019-03-27 01:16] LABS: Potassium 4.2 mmol/L (3.4-5.1)
[2019-03-27] MEDS: ALBUTEROL HFA PREPACK 1 BOX MISC (02:06)
[2019-03-27 02:07] VITALS: BP 122/74; PULSE 87; RESP 15; O2SAT 100
== END 2019-03-27 02:20 | disposition home or self-care (01) ==
PROVIDERS: Emergency Provider Emergency Medicine
DX: J40 Bronchitis, not specified as acute or chronic (principal)
CPT/HCPCS: 36591; 71046; 80053; 85025; 94640; 96361; 96374; 99283; 99284; J2930; J7613

== ENCOUNTER 2019-09-22 11:34 | Emergency (ER) | payer OTHER, MEDICAID, SELFPAY ==
[2019-09-22 11:40] VITALS: BP 143/89; PULSE 91; RESP 18; TEMP 36.9; O2SAT 100; BMI 43.2
--- NOTE | 2019-09-22 12:19 | DI.RAD.S_ITS ---
PROCEDURE: XR KNEE RT 3V INDICATIONS: knee pain sp fall TECHNIQUE: 3 views of the knee were acquired. COMPARISON: None. FINDINGS: Bones: No fractures or dislocations. No suspicious bony lesions. Soft tissues: No joint effusion. No suspicious soft tissue calcifications. IMPRESSION: 1. No fracture or dislocation. Dictated by: Sung Rachel M.D. on 09/22/2019 at 11:39 Approved by: Sung Rachel M.D. on 09/22/2019 at 11:40
--- NOTE | 2019-09-22 12:19 | DI.RAD.S_ITS ---
PROCEDURE: XR ANKLE RT MIN 3V INDICATIONS: pain status post fall TECHNIQUE: Pre-views of the ankle were acquired. COMPARISON: None. FINDINGS: Bones: No definite fractures or dislocations. Ankle mortise is normally aligned. No suspicious bony lesions. Soft tissues: No tibiotalar joint effusion. Achilles tendon appears normal. IMPRESSION: 1. No definite fracture or dislocation. Dictated by: Sung Rachel M.D. on 09/22/2019 at 11:40 Approved by: Sung Rachel M.D. on 09/22/2019 at 11:41
[2019-09-22] MEDS: LIDOCAINE/PRILOCAINE 5 GM TOP (13:26)
--- NOTE | 2019-09-22 13:49 | ED_ITS ---
HPI - Extremity Injury (Lower) <LINDA Gonzalez-BC - Last Filed: 09/22/19 21:05> General Chief Complaint: Extremity Injury, Lower Stated Complaint: moved landscaping on slop got cut right side sullivan Time Seen by Provider: 09/22/19 12:11 Source: patient and family Mode of arrival: Wheelchair Limitations: no limitations History of Present Illness HPI Narrative: The patient is a 29-year-old female who presents with a chief complaint of right knee and ankle pain after she fell down a slope while doing landscaping. She complains of a cut and abrasion to the bottom of her right leg. She states she has history of right ankle surgery. She denies any previous injuries to her knee. She has not taken anything for pain or applied ice. She states that she is not sure when her last tetanus was. She denies hitting her head, any neck or back pain. Related Data Previous Rx's Medication Instructions Recorded metoclopramide HCl 5 mg PO Q8HR PRN #10 tab 01/19/19 ondansetron 4 mg PO TID-QID PRN #10 tab 03/14/19 promethazine-codeine 5 ml PO Q4-6H PRN #118 ml 03/14/19 Allergies Allergy/AdvReac Type Severity Reaction Status Date / Time iodine Allergy Hives Verified 09/22/19 11:49 ketorolac [From Toradol] Allergy ITCHING Verified 09/22/19 11:49 Sulfa (Sulfonamide Allergy Hives Verified 09/22/19 11:49 Antibiotics) Review of Systems <RENÉE Gonzalez - Last Filed: 09/22/19 21:05> Review of Systems Narrative: GENERAL: Denies chills, fatigue, malaise, fever, sweats. HEENT: Denies sinus pain, ear pain, sore throat, difficulty swallowing, dizzine ss. RESPIRATORY: Denies dyspnea, cough, wheezing, hemoptysis, sputum. CARDIOVASCULAR: Denies chest pain, palpitations, orthopnea, edema, GASTROINTESTINAL: Denies nausea, vomiting, abdominal pain, diarrhea, constipation, melena. : Denies dysuria, frequency, incontinence, hematuria, urinary retention. MUSCULOSKELETAL: See HPI SKIN: See HPI NEUROLOGIC: Denies weakness, headache, numbness, change in speech, confusion, seizures, incoordination. PSYCHIATRIC: No concerning psychosocial issues. 12 point review of systems is negative except for those stated above Patient History <RENÉE Gonzalez - Last Filed: 09/22/19 21:05> Medical History Depression (Acute) Raynaud disease (Acute) Social History Smoking Status: Never smoker Smoking Status: Never smoker alcohol intake frequency: a few times a month Substance Use Type: does not use Exam <RENÉE Gonzalez - Last Filed: 09/22/19 21:05> Narrative Exam Narrative: GENERAL: Obese female no acute distress HEAD: Atraumatic. Normocephalic. No temporal or scalp tenderness. EYES: Pupils equal round and reactive. Extraocular motions intact. No scleral icterus. No injection or drainage. ENT: Nose without bleeding, purulent drainage or septal hematoma. Throat without erythema, tonsillar hypertrophy or exudate. Uvula midline. Airway patent. NECK: Trachea midline. No JVD or lymphadenopathy. Supple, nontender, no meningeal signs. CARDIOVASCULAR: Regular rate and rhythm without murmurs, gallops, or rubs. RESPIRATORY: Clear to auscultation. Breath sounds equal bilaterally. No wheezes, rales, or rhonchi. No cough. No increased respiratory effort. No accessory muscle use. GASTROINTESTINAL: Abdomen soft, non-tender, nondistended. No hepato- splenomegaly, or palpable masses. No guarding. EXTREMITIES: General pain to palpation noted right ankle and right knee. Full range of motion noted right ankle and right knee. See skin exam. Positive pedal pulses right foot BACK: Nontender without deformity or crepitance. No flank tenderness. No pain to CT or L-spine palpation. NEURO: AOx3. SKIN: 8 x 5 cm of abrasions noted lateral aspect right lower leg. 2 cm noted to be deeper than the rest, still not full thickness. No obvious muscle or tendon involvement. No obvious foreign bodies Initial Vital Signs Initial Vital Signs: Vital Signs Temperature 98.5 F 09/22/19 11:40 Pulse Rate 91 H 09/22/19 11:40 Respiratory Rate 18 09/22/19 11:40 Blood Pressure 143/89 H 09/22/19 11:40 Pulse Oximetry 100 09/22/19 11:40 <Latia Chambers MD - Last Filed: 09/23/19 17:46> Initial Vital Signs Initial Vital Signs: Vital Signs Temperature 98.5 F 09/22/19 11:40 Pulse Rate 91 H 09/22/19 11:40 Respiratory Rate 18 09/22/19 11:40 Blood Pressure 143/89 H 09/22/19 11:40 Pulse Oximetry 100 09/22/19 11:40 Procedures <RENÉE Gonzalez - Last Filed: 09/22/19 21:05> Laceration Repair Laceration 1: Site: lower extremity Side (If applicable): right Size (cm): 3 Description: linear (Abrasion) Depth: simple, single layer Local Anesthetic: other anesthetic (EMLA cream) Pre-repair: wound explored, irrigated extensively (Cleansed with Hibiclens) and deep structures intact Skin layer closed with: steri-strips Scores <RENÉE Gonzalez - Last Filed: 09/22/19 21:05> GCS Jama coma scale eye opening: Spontaneous Liberty coma scale verbal response: Orientated Liberty coma scale motor response: Obey commands Liberty coma scale total score: 15 Nexus Score for C-Spine Focal Neurologic deficit present: No Midline spinal tenderness present: No Altered level of conciousness present: No Intoxication present: No Distracting Injury Present: No Nexus Criteria for C-spine: 0 Course <RENÉE Gonzalez - Last Filed: 09/22/19 21:05> Orders Ordered: Discontinued Medications Diphtheria/Tetanus/Acell Pertussis (Adacel) 0.5 ml IM .ONCE ONE Stop: 09/22/19 13:50 Last Admin: 09/22/19 13:58 Dose: 0.5 ml Documented by: LANIE Lidocaine/Prilocaine (Lidocaine-Prilocaine Cream) 5 gm TOP NOW ONE Stop: 09/22/19 12:20 Last Admin: 09/22/19 13:26 Dose: 5 gm Documented by: RYAN Vital Signs Vital signs: Vital Signs - 8 hr 09/22/19 13:50 Pulse Rate 94 H Respiratory Rate 18 Blood Pressure [Right Arm] 133/81 Pulse Oximetry 98 <Latia Chambers MD - Last Filed: 09/23/19 17:46> Orders Ordered: Discontinued Medications Diphtheria/Tetanus/Acell Pertussis (Adacel) 0.5 ml IM .ONCE ONE Stop: 09/22/19 13:50 Last Admin: 09/22/19 13:58 Dose: 0.5 ml Documented by: LANIE Lidocaine/Prilocaine (Lidocaine-Prilocaine Cream) 5 gm TOP NOW ONE Stop: 09/22/19 12:20 Last Admin: 09/22/19 13:26 Dose: 5 gm Documented by: RYAN Vital Signs Vital signs: Vital Signs - 8 hr 09/22/19 13:50 Pulse Rate 94 H Respiratory Rate 18 Blood Pressure [Right Arm] 133/81 Pulse Oximetry 98 MDM - Extremity Injury (Lower) <RENÉE Gonzalez - Last Filed: 09/22/19 21:05> Imaging Data knee x-ray: Radiologist's impression: [address] [address] XRay Report Signed Patient: Alexander Milian GMR#: [id number] : 1990Acct:[id number] Age/Sex: 29 / FDate of Service: 09/22/19 Loc: ED Accession Number: [id number] Procedure: XR knee RT 3V Ordering Provider: Franci Vega PROCEDURE: XR KNEE RT 3V INDICATIONS: knee pain sp fall TECHNIQUE: 3 views of the knee were acquired. COMPARISON: None. FINDINGS: Bones: No fractures or dislocations. No suspicious bony lesions. Soft tissues: No joint effusion. No suspicious soft tissue calcifications. IMPRESSION: 1. No fracture or dislocation. Dictated by: Sung Rachel M.D. on 09/22/2019 at 11:39 Approved by: Sung Rachel M.D. on 09/22/2019 at 11:40 Ankle x-ray: Radiologist's impression: [address] [address] XRay Report Signed Patient: Alexander Milian GMR#: [id number] : 1990Acct:[id number] Age/Sex: 29 / FDate of Service: 12/14/19 Loc: ED Accession Number: [id number] Procedure: XR ankle RT min 3V Ordering Provider: Franci Vega-BC PROCEDURE: XR ANKLE RT MIN 3V INDICATIONS: pain status post fall TECHNIQUE: Pre-views of the ankle were acquired. COMPARISON: None. FINDINGS: Bones: No definite fractures or dislocations. Ankle mortise is normally aligned. No suspicious bony lesions. Soft tissues: No tibiotalar joint effusion. Achilles tendon appears normal. IMPRESSION: 1. No definite fracture or dislocation. Dictated by: Sung Rachel M.D. on 09/22/2019 at 11:40 Approved by: Sung Rachel M.D. on 09/22/2019 at 11:41 [facility] Narrative Medical decision making narrative: The patient is a 29-year-old female who presents with a chief complaint of right ankle and knee pain and abrasion after a fall. Her wound was cleansed copiously. I did use a Steri-Strips on the deeper part of the abrasion. Her tetanus was updated. X-rays came back with no acute fractures, but we did discuss the possibility of soft tissue injury as well as occult fracture. Encourage PCP follow-up in the next few days. Patient is able ambulate around the emergency department with about difficulties. No questions or concerns upon discharge. Patient states understanding of return precautions as well as follow-up care. Discharge Plan Departure Patient Disposition: Home Clinical Impression: Laceration Acute knee pain Qualifiers: Laterality: right Qualified Code(s): M25.561 - Pain in right knee Acute ankle pain Qualifiers: Laterality: right Qualified Code(s): M25.571 - Pain in right ankle and joints of right foot Discharge Date/Time: 09/22/19 14:18 Instructions: DI for Laceration Repair Steri-Strips, How To Perform RICE (Rest, Ice, Compress, Elevate), DI for Ankle Pain, DI for Knee Pain Activity Restrictions/Additional Instructions: As I discussed, your x-rays show no acute fracture. This does not rule out a soft tissue injury such as a ligament or tendon injury. It is important that you follow up with primary care provider, especially if worsening or no improvement. There can be fractures that did not show up on initial x-ray. Please monitor your laceration for signs and symptoms of infection such as redness swelling and pus. Please follow-up with primary care provider in the next few days. Please come back to the emergency department for any acute concerns. Prescriptions: No Action metoclopramide HCl 5 mg tablet 5 mg PO Q8HR PRN (Reason: nausea and vomiting) Qty: 10 RF: 0 ondansetron 4 mg tablet,disintegrating 4 mg PO TID-QID PRN (Reason: nausea and vomiting) Qty: 10 RF: 0 promethazine-codeine 6.25-10 mg/5 mL syrup 5 ml PO Q4-6H PRN (Reason: cough) Qty: 118 RF: 0
[2019-09-22 13:50] VITALS: BP 133/81; PULSE 94; RESP 18; O2SAT 98
[2019-09-22] MEDS: TET,DIPH,PERTUSS(ACELL),VAC/PF 0.5 ML SYRINGE IM (13:58)
== END 2019-09-22 14:18 | disposition home or self-care (01) ==
PROVIDERS: Emergency Provider Nurse Practitioner Family
DX: S81.811A Laceration without foreign body, right lower leg, initial encounter (principal); M25.561 Pain in right knee; M25.571 Pain in right ankle and joints of right foot; Z23 Encounter for immunization; W17.89XA Other fall from one level to another, initial encounter
CPT/HCPCS: 73562; 73610; 90471; 99281; 99283; 90715

== ENCOUNTER 2023-09-14 15:17 | Emergency (ER) | payer OTHER, SELFPAY ==
[2023-09-14 15:21] VITALS: BP 148/67; PULSE 75; RESP 18; TEMP 37.4; O2SAT 97; BMI 43.2
--- NOTE | 2023-09-14 16:38 | ED_ITS ---
HPI - Back Pain/Injury <Alec Higginbotham PA-C - Last Filed: 09/14/23 17:05> General Chief Complaint: Back Pain/Injury Stated Complaint: major back pain, difficulty breathing Time Seen by Provider: 09/14/23 15:58 Source: patient History of Present Illness HPI Narrative: This is a 33-year-old female presents to the emergency department complaining of back pain. She states she initially hurt her back during ground level fall 10 months ago. She states that the back pain has been affecting her intermittently but has recently flared up over the last clear couple of days? locked up?. She reports some paresthesias in her bilateral distal calves and toes denies any saddle paresthesia or significant unilateral weakness. Denies any fevers. Related Data Previous Rx's Medication Instructions Recorded metoclopramide HCl 5 mg tablet 5 mg PO Q8HR PRN nausea and 01/19/19 vomiting #10 tabs ondansetron 4 mg disintegrating 4 mg PO TID-QID PRN nausea and 03/14/19 tablet vomiting #10 tabs promethazine 6.25 mg-codeine 10 5 ml PO Q4-6H PRN cough #118 mL 03/14/19 mg/5 mL syrup cyclobenzaprine 10 mg tablet 10 mg PO TID #30 tabs 09/14/23 Allergies Allergy/AdvReac Type Severity Reaction Status Date / Time iodine Allergy Hives Verified 09/22/19 11:49 ketorolac [From Toradol] Allergy ITCHING Verified 09/22/19 11:49 Sulfa (Sulfonamide Allergy Hives Verified 09/22/19 11:49 Antibiotics) Review of Systems <Alec Higginbotham PA-C - Last Filed: 09/14/23 17:05> Review of Systems Narrative: GENERAL: Denies chills, fatigue, malaise, fever, sweats. HEENT: Denies sinus pain, ear pain, sore throat, difficulty swallowing, dizziness. RESPIRATORY: Denies dyspnea, cough, wheezing, hemoptysis, sputum. CARDIOVASCULAR: Denies chest pain, palpitations, orthopnea, edema, GASTROINTESTINAL: Denies nausea, vomiting, abdominal pain, diarrhea, constipation, melena. : Denies dysuria, frequency, incontinence, hematuria, urinary retention. MUSCULOSKELETAL: Reports back pain denies weakness, joint pain, or bony pain SKIN: Denies rash, skin lesions, or other NEUROLOGIC: Denies weakness, headache, numbness, change in speech, confusion, seizures, incoordination. PSYCHIATRIC: No concerning psychosocial issues. 12 point review of systems is negative except for those stated above Patient History <Alec Higginbotham PA-C - Last Filed: 09/14/23 17:05> Medical History (Updated 09/14/23 @ 16:39 by Alec Higginbotham PA-C) Depression Raynaud disease Social History Smoking Status: Never smoker Smoking Status: Never smoker alcohol intake frequency: a few times a month Substance Use Type: does not use Exam <Alec Higginbotham PA-C - Last Filed: 09/14/23 17:05> Narrative Exam Narrative: GENERAL: Well-developed patient, in mild distress. HEAD: Atraumatic. Normocephalic. EYES: Pupils equal round and reactive. Extraocular motions intact. No scleral icterus. No injection or drainage. ENT: Nose without bleeding, purulent drainage. Throat without erythema, tonsillar hypertrophy or exudate. Airway patent. NECK: Trachea midline. Non tender CARDIOVASCULAR: Regular rate and rhythm without murmurs, gallops, or rubs. RESPIRATORY: Clear to auscultation. Breath sounds equal bilaterally. No wheezes, rales, or rhonchi. GASTROINTESTINAL: Abdomen soft, non-tender, nondistended. EXTREMITIES: No edema or joint tenderness. BACK: Mild tenderness to palpation to lumbar paraspinals NEURO: AOx3. SKIN: No rash or erythema of visible areas Initial Vital Signs Initial Vital Signs: Vital Signs Temperature 99.3 F 09/14/23 15:21 Pulse Rate 75 09/14/23 15:21 Respiratory Rate 18 09/14/23 15:21 Blood Pressure 148/67 H 09/14/23 15:21 Pulse Oximetry 97 09/14/23 15:21 Oxygen Delivery Method Room Air 09/14/23 15:21 <Otoniel Lal DO - Last Filed: 09/15/23 09:22> Initial Vital Signs Initial Vital Signs: Vital Signs Temperature 99.3 F 09/14/23 15:21 Pulse Rate 75 09/14/23 15:21 Respiratory Rate 18 09/14/23 15:21 Blood Pressure 148/67 H 09/14/23 15:21 Pulse Oximetry 97 09/14/23 15:21 Oxygen Delivery Method Room Air 09/14/23 15:21 Course <Alec Higginbotham PA-C - Last Filed: 09/14/23 17:05> Orders Ordered: Discontinued Medications Diphenhydramine HCl (Diphenhydramine 25 Mg Tablet) 50 mg PO NOW ONE Stop: 09/14/23 16:19 Last Admin: 09/14/23 16:55 Dose: 50 mg Documented By: NANY Ketorolac Tromethamine (Ketorolac 30 Mg/Ml Vial) 15 mg IM NOW ONE Stop: 09/14/23 16:17 Last Admin: 09/14/23 16:55 Dose: 15 mg Documented By: NANY Vital Signs Vital signs: Vital Signs - 8 hr 09/14/23 15:21 Temperature 99.3 F Pulse Rate 75 Respiratory Rate 18 Blood Pressure 148/67 H Pulse Oximetry 97 Oxygen Delivery Method Room Air <Otoniel Lal DO - Last Filed: 09/15/23 09:22> Orders Ordered: Discontinued Medications Diphenhydramine HCl (Diphenhydramine 25 Mg Tablet) 50 mg PO NOW ONE Stop: 09/14/23 16:19 Last Admin: 09/14/23 16:55 Dose: 50 mg Documented By: NANY Ketorolac Tromethamine (Ketorolac 30 Mg/Ml Vial) 15 mg IM NOW ONE Stop: 09/14/23 16:17 Last Admin: 09/14/23 16:55 Dose: 15 mg Documented By: NANY Vital Signs Vital signs: Vital Signs - 8 hr 09/14/23 15:21 Temperature 99.3 F Pulse Rate 75 Respiratory Rate 18 Blood Pressure 148/67 H Pulse Oximetry 97 Oxygen Delivery Method Room Air MDM - Back Pain/Injury <Alec Higginbotham PA-C - Last Filed: 09/14/23 17:05> MDM Narrative Medical decision making narrative: MDM * differential diagnosis includes but not limited to spinal cord injury, lumbosacral strain, vertebral fracture * Prior records reviewed: Patient has not been here for similar symptoms in the past * My lab interpretation: None obtained * My imgaing interpretation: None obtained * Clinical Decision Rules/Scores evaluated: None * Independent discussions with: None ED Course: This is a 33-year-old female presents to the emergency department due to suspected lumbosacral strain. No concerning symptoms such as saddle paresthesias, fevers, significant weakness or urinary or bowel incontinence. Toradol given today here in the emergency department as well as prescription for muscle relaxants. She will follow up with the primary care provider for further evaluation and workup if symptoms continue. Shared Decision Making: Discussed plan with the patient who is comfortable with the plan. Social Considerations: None Disposition: Discharged to home Discharge Plan Departure Patient Disposition: Home Clinical Impression: Strain of lumbar region Activity Restrictions/Additional Instructions: Thank you for coming to the [facility] Emergency Department today. As we discussed I recommend he follow up primary care provider for possible further advanced imaging. Please take the muscle relaxants as well as use ibuprofen and Tylenol as well as light stretching and activity to help with the back pain. I sent your medication to [facility] in [place]. I hope you feel better soon. Please follow up with your primary care provider within a week if your symptoms continue. If you do not have a primary care provider please contact the [facility] Resource line at [phone]. They will ask some questions about your medical history and help you get set up with a provider in the community. Prescriptions: New cyclobenzaprine 10 mg tablet 10 mg PO TID Qty: 30 0RF No Action metoclopramide HCl 5 mg tablet 5 mg PO Q8HR PRN (Reason: nausea and vomiting) Qty: 10 0RF ondansetron 4 mg tablet,disintegrating 4 mg PO TID-QID PRN (Reason: nausea and vomiting) Qty: 10 0RF promethazine-codeine 6.25-10 mg/5 mL syrup 5 ml PO Q4-6H PRN (Reason: cough) Qty: 118 0RF Stand Alone Forms: Patient Portal/API ED Sign-out <Otoniel Lal DO - Last Filed: 09/15/23 09:22> Cosign ED Attending Adolfo Attestation: I was immediately available in the department for consultation. Documentation has been reviewed. I agree with assessment and plan.
[2023-09-14] MEDS: diphenhydrAMINE 25 MG TABLET 50 MG PO (16:55)
[2023-09-14] MEDS: KETOROLAC 30 MG/ML VIAL 15 MG IM (16:55)
[2023-09-14 17:06] VITALS: BP 152/86; PULSE 75; RESP 18; O2SAT 97
--- NOTE | 2023-09-14 17:08 | PC.NURSE ---
[place]. 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 She also hurt her back but was not checked for that when it happened. The pain in her back has increased over the last few months.
== END 2023-09-14 17:16 | disposition home or self-care (01) ==
PROVIDERS: Emergency Provider Physician Assistant Medical
DX: S39.012A Strain of muscle, fascia and tendon of lower back, initial encounter (principal); W19.XXXA Unspecified fall, initial encounter
CPT/HCPCS: 96372; 99284; J1885

== ENCOUNTER 2023-09-15 13:47 | Emergency (ER) | payer OTHER, MEDICAID, SELFPAY ==
[2023-09-15 13:52] VITALS: BP 161/98; PULSE 75; RESP 20; TEMP 36.9; O2SAT 96; BMI 43.2
[2023-09-15 14:12] VITALS: PULSE 78; O2SAT 97
--- NOTE | 2023-09-15 15:56 | ED_ITS ---
HPI - Back Pain/Injury <Alec Higginbotham PA-C - Last Filed: 09/15/23 16:22> General Chief Complaint: Back Pain/Injury Stated Complaint: LOWER BACK PAIN Time Seen by Provider: 09/15/23 15:55 Source: patient History of Present Illness HPI Narrative: This is a 33-year-old female presents to the emergency department due to continued lower back pain after being seen yesterday. Patient had a injury in December while skiing which leads to some back pain which is caused off and on flares for the last 9 months. She denies any urinary or bowel incontinence, saddle paresthesias, or any other concerning signs or symptoms. Related Data Previous Rx's Medication Instructions Recorded metoclopramide HCl 5 mg tablet 5 mg PO Q8HR PRN nausea and 01/19/19 vomiting #10 tabs ondansetron 4 mg disintegrating 4 mg PO TID-QID PRN nausea and 03/14/19 tablet vomiting #10 tabs promethazine 6.25 mg-codeine 10 5 ml PO Q4-6H PRN cough #118 mL 03/14/19 mg/5 mL syrup cyclobenzaprine 10 mg tablet 10 mg PO TID #30 tabs 09/14/23 cyclobenzaprine 10 mg tablet 10 mg PO TID PRN muscle spasm #20 09/15/23 tabs lidocaine 4 % topical patch 1 patch topical BID PRN pain #15 ea 09/15/23 methylprednisolone 4 mg tablets in See Rx Instructions PO .COMPLEX 09/15/23 a dose pack (Medrol (Rock)) #21 ea Allergies Allergy/AdvReac Type Severity Reaction Status Date / Time iodine Allergy Hives Verified 09/22/19 11:49 ketorolac [From Toradol] Allergy ITCHING Verified 09/22/19 11:49 Sulfa (Sulfonamide Allergy Hives Verified 09/22/19 11:49 Antibiotics) Review of Systems <Alec Higginbotham PA-C - Last Filed: 09/15/23 16:22> Review of Systems Narrative: GENERAL: Denies chills, fatigue, malaise, fever, sweats. HEENT: Denies sinus pain, ear pain, sore throat, difficulty swallowing, dizziness. RESPIRATORY: Denies dyspnea, cough, wheezing, hemoptysis, sputum. CARDIOVASCULAR: Denies chest pain, palpitations, orthopnea, edema, GASTROINTESTINAL: Denies nausea, vomiting, abdominal pain, diarrhea, constipation, melena. : Denies dysuria, frequency, incontinence, hematuria, urinary retention. MUSCULOSKELETAL: Reports back pain, denies weakness, joint pain, or bony pain SKIN: Denies rash, skin lesions, or other NEUROLOGIC: Denies weakness, headache, numbness, change in speech, confusion, seizures, incoordination. PSYCHIATRIC: No concerning psychosocial issues. 12 point review of systems is negative except for those stated above Patient History <Alec Higginbotham PA-C - Last Filed: 09/15/23 16:22> Medical History (Updated 09/15/23 @ 16:08 by Alec Higginbotham PA-C) Depression Raynaud disease Social History Smoking Status: Never smoker Smoking Status: Never smoker alcohol intake frequency: a few times a month Substance Use Type: does not use Exam <Alec Higginbotham PA-C - Last Filed: 09/15/23 16:22> Narrative Exam Narrative: GENERAL: Well-developed patient, in mild distress. HEAD: Atraumatic. Normocephalic. EYES: Pupils equal round and reactive. Extraocular motions intact. No scleral icterus. No injection or drainage. ENT: Nose without bleeding, purulent drainage. Throat without erythema, tonsillar hypertrophy or exudate. Airway patent. NECK: Trachea midline. Non tender CARDIOVASCULAR: Regular rate and rhythm without murmurs, gallops, or rubs. RESPIRATORY: Clear to auscultation. Breath sounds equal bilaterally. No wheezes, rales, or rhonchi. GASTROINTESTINAL: Abdomen soft, non-tender, nondistended. EXTREMITIES: No edema or joint tenderness. BACK: Mild tenderness to palpation to lumbar paraspinal muscles NEURO: AOx3. SKIN: No rash or erythema of visible areas Initial Vital Signs Initial Vital Signs: Vital Signs Temperature 98.4 F 09/15/23 13:52 Pulse Rate 75 09/15/23 13:52 Respiratory Rate 20 09/15/23 13:52 Blood Pressure 161/98 H 09/15/23 13:52 Pulse Oximetry 96 09/15/23 13:52 Oxygen Delivery Method Room Air 09/15/23 13:52 <Franci Daniel DO - Last Filed: 09/18/23 07:37> Initial Vital Signs Initial Vital Signs: Vital Signs Temperature 98.4 F 09/15/23 13:52 Pulse Rate 75 09/15/23 13:52 Respiratory Rate 20 09/15/23 13:52 Blood Pressure 161/98 H 09/15/23 13:52 Pulse Oximetry 96 09/15/23 13:52 Oxygen Delivery Method Room Air 09/15/23 13:52 Course <Alec Higginbotham PA-C - Last Filed: 09/15/23 16:22> Vital Signs Vital signs: Vital Signs - 8 hr 09/15/23 13:52 09/15/23 14:12 Temperature 98.4 F Pulse Rate 75 78 Respiratory Rate 20 Blood Pressure 161/98 H Pulse Oximetry 96 97 Oxygen Delivery Method Room Air <Franci Daniel DO - Last Filed: 09/18/23 07:37> Vital Signs Vital signs: Vital Signs - 8 hr 09/15/23 13:52 09/15/23 14:12 Temperature 98.4 F Pulse Rate 75 78 Respiratory Rate 20 Blood Pressure 161/98 H Pulse Oximetry 96 97 Oxygen Delivery Method Room Air MDM - Back Pain/Injury <Alec Higginbotham PA-C - Last Filed: 09/15/23 16:22> MDM Narrative Medical decision making narrative: MDM * differential diagnosis includes but not limited to lumbosacral strain, vertebral fracture, spinal cord injury * Prior records reviewed: Patient was seen here yesterday for similar complaint * My lab interpretation: None obtained * My imgaing interpretation: None obtained * Clinical Decision Rules/Scores evaluated: None * Independent discussions with: None ED Course: This is a 33-year-old female presenting to the emergency department due to suspected lumbosacral strain. She was given Toradol and muscle relaxants yesterday but has returned as does not provide her relief. We will add Medrol Dosepak, lidocaine patches, and recommended higher dosing of Tylenol and ibuprofen until she was able to follow up with a her primary care provider for long-term pain management. Shared Decision Making: Discussed plan with the patient who is comfortable with the plan. Social Considerations: None Disposition: Discharged to home Discharge Plan Departure Patient Disposition: Home Clinical Impression: Strain of lumbar region Instructions: DI for Back Spasm Activity Restrictions/Additional Instructions: Thank you for coming to the [facility] Emergency Department today. We will add additional pain medications to help back pain until you are able to follow up with the primary care provider on Tuesday. You may take 800 mg of ibuprofen every 6 hours. You may take a 1000 mg of Tylenol every 6 hours. Please also take the medications I prescribed as prescribed. I hope you feel better soon. Please follow up with your primary care provider within a week if your symptoms continue. If you do not have a primary care provider please contact the [facility] Resource line at [phone]. They will ask some questions about your medical history and help you get set up with a provider in the community. Prescriptions: New cyclobenzaprine 10 mg tablet 10 mg PO TID PRN (Reason: muscle spasm) Qty: 20 0RF lidocaine 4 % adhesive patch,medicated 1 patch topical BID PRN (Reason: pain) Qty: 15 0RF methylprednisolone [Medrol (Rock)] 4 mg tablets,dose pack See Rx Instructions .ROUTE .COMPLEX Qty: 21 0RF Rx Instructions: orally per package directions No Action metoclopramide HCl 5 mg tablet 5 mg PO Q8HR PRN (Reason: nausea and vomiting) Qty: 10 0RF ondansetron 4 mg tablet,disintegrating 4 mg PO TID-QID PRN (Reason: nausea and vomiting) Qty: 10 0RF promethazine-codeine 6.25-10 mg/5 mL syrup 5 ml PO Q4-6H PRN (Reason: cough) Qty: 118 0RF cyclobenzaprine 10 mg tablet 10 mg PO TID Qty: 30 0RF Stand Alone Forms: Patient Portal/API ED Sign-out <Franci Daniel DO - Last Filed: 09/18/23 07:37> Cosign ED Attending Adolfo Attestation: I was immediately available in the department for consultation.
--- NOTE | 2023-09-15 15:59 | PC.NURSE ---
KACIE Higginbotham at bedside
[2023-09-15 16:23] VITALS: BP 149/89; PULSE 60; RESP 14; O2SAT 100
== END 2023-09-15 16:26 | disposition home or self-care (01) ==
PROVIDERS: Emergency Provider Physician Assistant Medical
DX: S39.012A Strain of muscle, fascia and tendon of lower back, initial encounter (principal); Y93.23 Activity, snow (alpine) (downhill) skiing, snowboarding, sledding, tobogganing and snow tubing
CPT/HCPCS: 99281; 99283

== ENCOUNTER 2023-09-26 19:14 | Emergency (ER) | payer OTHER, MEDICAID, SELFPAY ==
[2023-09-26 19:22] VITALS: BP 171/92; PULSE 93; RESP 18; TEMP 37.2; O2SAT 100; BMI 43.2
--- NOTE | 2023-09-26 21:29 | ED_ITS ---
HPI - General Adult General Chief complaint: Upper Respiratory Symptoms Stated complaint: lymphadenopathy sent from [facility] Time Seen by Provider: 09/26/23 21:29 Source: patient Mode of arrival: Wheelchair History of Present Illness HPI narrative: 33-year-old woman with traumatic history after watching her father kill himself in front of her, currently on multiple PTSD/psychiatric medications who presents with persistent cough now for the last 2 weeks. She was initially seen on September 11 in an urgent care clinic diagnosed with bronchitis and treated with a Z-Rock, prednisone and albuterol inhaler. She was seen in our emergency de partment on September 14 and again on September 15 for unrelated back pain and did not mention any of the upper respiratory complaints. Dexamethasone was added to her medications. She presents today complaining of painful nodules behind her ears and over her scalp, persistent cough, ear pain, some mild tinnitus this morning and concerns that her cough is more productive. She is not having any fevers, vomiting or chills. She is very concerned about the tenderness with the posterior scalp adenopathy. She does not notice any scalp skin changes or wounds. Related Data Previous Rx's Medication Instructions Recorded metoclopramide HCl 5 mg tablet 5 mg PO Q8HR PRN nausea and 01/19/19 vomiting #10 tabs ondansetron 4 mg disintegrating 4 mg PO TID-QID PRN nausea and 03/14/19 tablet vomiting #10 tabs promethazine 6.25 mg-codeine 10 5 ml PO Q4-6H PRN cough #118 mL 03/14/19 mg/5 mL syrup cyclobenzaprine 10 mg tablet 10 mg PO TID #30 tabs 09/14/23 cyclobenzaprine 10 mg tablet 10 mg PO TID PRN muscle spasm #20 09/15/23 tabs lidocaine 4 % topical patch 1 patch topical BID PRN pain #15 ea 09/15/23 methylprednisolone 4 mg tablets in See Rx Instructions PO .COMPLEX 09/15/23 a dose pack (Medrol (Rock)) #21 ea fluticasone furoate 100 1 inh inhalation DAILY #14 ea 09/26/23 mcg/actuation blister powder for inhalation hydrocodone 5 mg-acetaminophen 325 1 tab PO Q6H PRN pain and cough 09/26/23 mg tablet #10 tabs Allergies Allergy/AdvReac Type Severity Reaction Status Date / Time iodine Allergy Hives Verified 09/26/23 19:22 ketorolac [From Toradol] Allergy ITCHING Verified 09/26/23 19:22 Sulfa (Sulfonamide Allergy Hives Verified 09/26/23 19:22 Antibiotics) Review of Systems Review of Systems Narrative: Pertinent positive and negative findings as per HPI Patient History Medical History (Updated 09/26/23 @ 23:08 by Latia Chambers MD) PTSD (post-traumatic stress disorder) Depression Raynaud disease Social History Smoking Status: Never smoker Smoking Status: Never smoker alcohol intake frequency: a few times a month Substance Use Type: does not use Exam Initial Vital Signs Initial Vital Signs: Vital Signs Temperature 98.9 F 09/26/23 19:22 Pulse Rate 93 H 09/26/23 19:22 Respiratory Rate 18 09/26/23 19:22 Blood Pressure 171/92 H 09/26/23 19:22 Pulse Oximetry 100 09/26/23 19:22 Oxygen Delivery Method Room Air 09/26/23 19:22 General: Healthy appearing, in no acute distress. Able to give a complete and coherent history. Well-nourished well-developed HEENT: Moist mucous membranes, normal sclera with reactive pupils, she has some posterior auricular adenopathy and cervical adenopathy that is causing her severe pain. Posterior pharynx is mildly erythematous and appears more irritated from her cough than anything else. There is no exudate. Neck: Mild anterior cervical adenopathy supple Respiratory: Lungs with minor scattered wheezing but no rhonchi. Full and symmetrical air movement Cardiac: Regular rate and rhythm no murmurs no bruits Abdomen: Soft, nontender, good bowel tones, no flank pain Skin: Warm and dry, no rashes Neurologic: Grossly neurologically intact with no obvious asymmetries or abnormalities Extremities: No trauma, well perfused Psych: Cooperative, appropriate insight and affect, quite anxious, slightly pressured speech, very concerned with the pain related to the adenopathy postauricular Course Orders Ordered: ED Orders 09/26/23 21:50 XR chest 2V Stat 09/26/23 21:58 Covid-19 + FLU A/B + RSV - PCR Stat Discontinued Medications Hydrocodone Bitart/Acetaminophen (Hydrocodone/Acet 5/325 Tablet) 1 tab PO NOW ONE Stop: 09/26/23 21:51 Last Admin: 09/26/23 21:57 Dose: 1 tab Documented By: ISADORA Albuterol/Ipratropium (Albuterol/Ipratropium 3 Ml Ampul) 3 ml INH NOW ONE Stop: 09/26/23 21:52 Last Admin: 09/26/23 22:04 Dose: 3 ml Documented By: BILL Vital Signs Vital signs: Vital Signs - 8 hr 09/26/23 19:22 Temperature 98.9 F Pulse Rate 93 H Respiratory Rate 18 Blood Pressure 171/92 H Pulse Oximetry 100 Oxygen Delivery Method Room Air Medical Decision Making Lab Data Labs: Lab Results 09/26/23 Range/Units 21:58 SARS-CoV-2 (PCR) Negative (Negative) Influenza A (RT-PCR) Flu a negative (NEGATIVE) Influenza B (RT-PCR) Flu b negative (NEGATIVE) RSV (PCR) Negative (Negative) MDM Narrative Medical decision making narrative: CC: Persistent cough for more than 14 days, swollen nodules behind her ears Complicating co-morbidities: Severe anxiety/PTSD, history of childhood asthma not on daily inhalers Data collected from: patient, partner who apparently is her primary caregiver and supplies her with her scheduled medications Medical records reviewed: Patient has records from [facility] and these are reviewed. Notes from her September 14 and visits to our emergency department are also reviewed Differential considered: RSV causing persistent cough, reactive airway disease with other viral syndrome, bacterial pneumonia, otitis media peritonsillar abscess Exam documented above, pertinent findings include: BMI of 43, Very anxious, slightly pressured speech, moderate posterior auricular adenopathy without any scalp sores or lesions. Tympanic membranes are slightly retracted and not erythematous, she is some mild anterior cervical adenopathy, minimal scattered wheeze throughout all lung ayala, Lab Test results independently reviewed as above. Pertinent findings: Viral testing for COVID, flu and RSV is negative Imaging studies independently reviewed: Two-view chest x-ray does not show infiltrate, cardiomegaly or fluid overload Treatments: DuoNeb help slightly with the cough, Vicodin help slightly with the pain and cough Discussion: 33-year-old woman with viral syndrome already treated with azithromycin, 2 courses steroid and has a nebulizer at home. There is no evidence of sepsis, cardiomyopathy, congestive heart failure, pneumothorax, pulmonary embolism or consolidated bacterial pneumonia. I suspect that her persistent cough secondary to the resolving viruses well as baseline mild reactive airway disease. At this time there is no indication for additional steroids or antibiotics. Will add an inhaled steroid and asked her to be more assertive with using her albuterol inhaler. I have also given her a short course of Vicodin to help with the severe pain secondary to the posterior auricular adenopathy as well as assist with cough suppression. She continues to have Tessalon Perles available at home. At this time there is no indication for advanced imaging, additional blood work or hospitalization. Findings reviewed with patient questions are answered and she is safe for discharge Additional Information: Apprpriate Treatment for Patients with URI [x] The patient was diagnosed with upper respiratory infection and was not prescribed or dispensed an antibiotic. [SATISFIES MIPS PERFORMANCE] Discharge Plan Departure Patient Disposition: Home Clinical Impression: Lymphadenopathy of head and neck region Upper respiratory infection Qualifiers: URI type: unspecified viral URI Qualified Code(s): J06.9 - Acute upper respiratory infection, unspecified Mild reactive airways disease Qualifiers: Asthma persistence: intermittent Asthma complication type: with acute exacerbation Qualified Code(s): J45.21 - Mild intermittent asthma with (acute) exacerbation Instructions: DI for Asthma -- Adult, DI for Bronchiolitis Activity Restrictions/Additional Instructions: Thank you for coming in today You have a virus. You do not have COVID, influenza or RSV. There is no sign of bacterial pneumonia. The tender spots over your head are lymph nodes that are reacting appropriately so there your immune system can res pond appropriately At this time there is no indication for antibiotics, additional oral steroids, blood work or hospital admission I suspect that the cough is persisting even longer than usual because you do have a mild component of reactive airway disease/asthma. I am going to give you an inhaled steroid to use daily for the next 14 days. I am also going to suggest that you use your albuterol inhaler with your spacer, 2 puffs every 6 hours for the next week. Hopefully this will stay on top of the airway inflammation so that your coughing is less. For the cough you can continue with the Mucinex, if you have not tried Mucinex DM that also can be helpful. You can also use the Tessalon Perles you have at home. Finally, I have given you a small prescription for Vicodin. This is Tylenol plus narcotic that will help not only with the severe pain secondary to the swollen lymph node but can be a very effective cough suppressant as well. Please do make sure you keep your appointment with your primary care physician within the next 48 hours. All prescriptions have been sent to [facility] in [place] If you find that you are getting worse or develop any new symptoms, please feel free to return to the emergency department for further evaluation. Prescriptions: New fluticasone furoate 100 mcg/actuation blister with device 1 inh inhalation DAILY Qty: 14 0RF hydrocodone-acetaminophen 5-325 mg tablet 1 tab PO Q6H PRN (Reason: pain and cough) Qty: 10 0RF No Action metoclopramide HCl 5 mg tablet 5 mg PO Q8HR PRN (Reason: nausea and vomiting) Qty: 10 0RF cyclobenzaprine 10 mg tablet 10 mg PO TID PRN (Reason: muscle spasm) Qty: 20 0RF lidocaine 4 % adhesive patch,medicated 1 patch topical BID PRN (Reason: pain) Qty: 15 0RF methylprednisolone [Medrol (Rock)] 4 mg tablets,dose pack See Rx Instructions .ROUTE .COMPLEX Qty: 21 0RF Rx Instructions: orally per package directions ondansetron 4 mg tablet,disintegrating 4 mg PO TID-QID PRN (Reason: nausea and vomiting) Qty: 10 0RF promethazine-codeine 6.25-10 mg/5 mL syrup 5 ml PO Q4-6H PRN (Reason: cough) Qty: 118 0RF cyclobenzaprine 10 mg tablet 10 mg PO TID Qty: 30 0RF Stand Alone Forms: Patient Portal/API
--- NOTE | 2023-09-26 21:50 | DI.RAD.S_ITS ---
PROCEDURE: XR CHEST 2V INDICATIONS: persistent cough TECHNIQUE: 2 views of the chest were acquired. COMPARISON: [facility], CR, XR CHEST 2V, 03/27/2019, 0:23. FINDINGS: Surgical changes and devices: None. Lungs and pleura: Lungs are clear. No pleural effusions or pneumothorax. Mediastinum: Mediastinal contours are normal. Heart size is normal. Bones and chest wall: No suspicious bony abnormalities. Soft tissues appear unremarkable. IMPRESSION: No acute pulmonary process. Dictated by: Jessenia Zamorano M.D. on 09/26/2023 at 22:11 Approved by: Jessenia Zamorano M.D. on 09/26/2023 at 22:11
[2023-09-26] MEDS: HYDROCODONE/ACET 5/325 TABLET 1 TAB PO (21:57)
[2023-09-26] MEDS: ALBUTEROL/IPRATROPIUM 3 ML AMPUL INH (22:04)
[2023-09-26 22:45] LABS: Influenza A - CEPHEID Flu A NEGATIVE (NEGATIVE); Influenza B - CEPHEID Flu B NEGATIVE (NEGATIVE); Respiratory Syncytial Virus Negative (Negative)
[2023-09-26 22:54] LABS: COVID-19 CEPHEID 4-PLEX PCR Negative (Negative)
[2023-09-26 23:39] VITALS: BP 146/92; PULSE 77; RESP 20; TEMP 36.9; O2SAT 97
--- NOTE | 2023-09-27 18:29 | PC.NURSE ---
Addendum entered by Delores Son R.N. 09/27/23 19:36: Left message for [facility] to substitute Pulmicort flexhaler for uncovered inhaler. Left number for call back. Called pt and asked that she call back if she continues to have difficulty filling script. Original Note: Pt's called stating that the steroid inhaler prescribed was not covered by insurance. Received permission from Dr. Askew to discuss w/ pharmacy theraputic substitution however unable to reach anyone at [facility] after multiple attempts and on hold for > 30 minutes. Pt made aware. Will attempt again but pt made aware that this may not be completed this evening.
--- NOTE | 2023-09-28 20:13 | PC.NURSE ---
Late entry: Received phone call from pt's stating that there was still no steroid inhaler for patient. I had left message for pharmacy last night. I called pharmacy again @ 1500 & 1800 and left further messages. No call back as of 1999. Called back and left message as to status.
== END 2023-09-26 23:45 | disposition home or self-care (01) ==
PROVIDERS: Emergency Provider Emergency Medicine
DX: J06.9 Acute upper respiratory infection, unspecified (principal); J45.21 Mild intermittent asthma with (acute) exacerbation; R59.0 Localized enlarged lymph nodes; Z20.822 Contact with and (suspected) exposure to COVID-19
CPT/HCPCS: 0241U; 71046; 94640; 99283; 99284

== ENCOUNTER 2024-03-11 21:51 | Emergency (ER) | payer OTHER, SELFPAY ==
--- NOTE | 2024-03-11 21:55 | DI.RAD.S_ITS ---
PROCEDURE: XR CHEST 1V INDICATIONS: SOB TECHNIQUE: One view of the chest was acquired. COMPARISON: [facility], CR, XR CHEST 1 VIEW, 01/14/2024, 15:40. FINDINGS: Surgical changes and devices: None. Lungs and pleura: Lungs are clear. No pleural effusions or pneumothorax. Mediastinum: Mediastinal contours appear normal. Heart size is normal. Bones and chest wall: No suspicious bony lesions. Overlying soft tissues appear unremarkable. IMPRESSION: No acute cardiopulmonary abnormality is seen. Approved by: Rich Alvarado M.D. on 03/11/2024 at 23:07
[2024-03-11 21:56] VITALS: BP 184/106; PULSE 77; RESP 18; TEMP 36.8; O2SAT 99; BMI 42.4
[2024-03-11 23:00] LABS: Adenovirus Not Detected (Not Detect); B. parapertussis Not Detected (Not Detecte); Bordetella pertussis Not Detected (Not Detect); Chlamydophila pneumoniae Not Detected (Not Detect); Coronavirus 229E Not Detected (Not Detect); Coronavirus HKU1 Not Detected (Not Detect); Coronavirus NL 63 Not Detected (Not Detect); Coronavirus OC43 Not Detected (Not Detect); Human Metapneumovirus Not Detected (Not Detect); Human Rhinovirus/Enterovirus Not Detected (Not Detect); Influenza A Not Detected (Not Detect); Influenza B Not Detected (Not Detect); Mycoplasma pneumoniae Not Detected (Not Detect); Parainfluenza Virus 1 Not Detected (Not Detect); Parainfluenza Virus 2 Not Detected (Not Detect); Parainfluenza Virus 3 Not Detected (Not Detect); Parainfluenza Virus 4 Not Detected (Not Detect); Respiratory Syncytial Virus Not Detected (Not Detect); SARS- CoV-2 Not Detected (Not Detecte)
--- NOTE | 2024-03-11 23:07 | PC.NURSE ---
pt states this all started when she got all of her shots at the same time on 2022. she then came down with a cold that has persisted for the last 8 months. on and off sinus infections treated with antibiotics. She states she was finally referred to ENT who wants to discuss sinus surgery on May 08. today she comes in with complaints of her tongue feeling very swollen, mucus feeling very thick and general hard to breathe feeling. she is having difficulty sleeping due to all the mucus.
--- NOTE | 2024-03-12 00:08 | ED.GENADULT ---
HPI - General Adult General Chief complaint: Shortness of Breath/Dyspnea Stated complaint: sinunitis, sob Time Seen by Provider: 03/11/24 21:55 Source: patient Mode of arrival: Ambulatory History of Present Illness HPI narrative: Patient is a 34-year-old female. Is here for evaluation of what she states is chronic sinusitis and cough and shortness of breath. She states that her symptoms have been going on for several months now. She does have an appointment/follow-up with ENT later this month to discuss potential surgical options. She has been on multiple medications to include antibiotics and other decongestants and steroids without much improvement. She states that she was so stuffed up in her nose that she can not breathe out of her nose. Since last causing her to cough and have shortness of breath. It sometimes is productive cough. No chest pain. No fevers. Related Data Previous Rx's Medication Instructions Recorded metoclopramide HCl 5 mg tablet 5 mg PO Q8HR PRN nausea and 01/19/19 vomiting #10 tabs ondansetron 4 mg disintegrating 4 mg PO TID-QID PRN nausea and 03/14/19 tablet vomiting #10 tabs promethazine 6.25 mg-codeine 10 5 ml PO Q4-6H PRN cough #118 mL 03/14/19 mg/5 mL syrup cyclobenzaprine 10 mg tablet 10 mg PO TID #30 tabs 09/14/23 cyclobenzaprine 10 mg tablet 10 mg PO TID PRN muscle spasm #20 09/15/23 tabs lidocaine 4 % topical patch 1 patch topical BID PRN pain #15 ea 09/15/23 methylprednisolone 4 mg tablets in See Rx Instructions PO .COMPLEX 09/15/23 a dose pack (Medrol (Rock)) #21 ea fluticasone furoate 100 1 inh inhalation DAILY #14 ea 09/26/23 mcg/actuation blister powder for inhalation hydrocodone 5 mg-acetaminophen 325 1 tab PO Q6H PRN pain and cough 09/26/23 mg tablet #10 tabs Allergies Allergy/AdvReac Type Severity Reaction Status Date / Time iodine Allergy Hives Verified 09/26/23 19:22 ketorolac [From Toradol] Allergy ITCHING Verified 09/26/23 19:22 Sulfa (Sulfonamide Allergy Hives Verified 12/18/23 19:22 Antibiotics) Review of Systems Review of Systems ROS Unobtainable: All systems reviewed & are unremarkable except as noted in HPI and below Patient History Medical History PTSD (post-traumatic stress disorder) Depression Raynaud disease Social History Smoking Status: Never smoker Smoking Status: Never smoker alcohol intake frequency: a few times a month Substance Use Type: does not use Exam Initial Vital Signs Initial Vital Signs: Vital Signs Temperature 98.3 F 03/11/24 21:56 Pulse Rate 77 03/11/24 21:56 Respiratory Rate 18 03/11/24 21:56 Blood Pressure 184/106 H 03/11/24 21:56 Pulse Oximetry 99 03/11/24 21:56 Oxygen Delivery Method Room Air 03/11/24 21:56 HENMT Head: normal to inspection and normocephalic Mouth: moist mucous membranes Resp Effort & Inspection: normal respiratory effort, no cough and not labored Auscultation: clear to auscultation bilaterally Cardio Rate: regular rate Skin General: no rashes or lesions noted Neuro General: patient alert, patient awake and moves all extremities Extrem General: normal to inspection Course Orders Ordered: ED Orders 03/11/24 21:55 XR chest 1V Stat 03/11/24 22:05 Respiratory Panel (Film Array) Stat Discontinued Medications Benzonatate (Benzonatate 100 Mg Capsule) 100 mg PO NOW ONE Stop: 03/12/24 00:09 Vital Signs Vital signs: Vital Signs - 8 hr 03/11/24 21:56 Temperature 98.3 F Pulse Rate 77 Respiratory Rate 18 Blood Pressure 184/106 H Pulse Oximetry 99 Oxygen Delivery Method Room Air Medical Decision Making Lab Data Lab results reviewed: Yes I reviewed the patient's lab results. Labs: Lab Results 03/11/24 Range/Units 22:05 Chlamy pneumoniae PCR Not detected (Not Detect) Adenovirus (PCR) Not detected (Not Detect) B.parapertussis DNA PCR Not detected (Not Detecte) Coronavirus OC43 (PCR) Not detected (Not Detect) Coronavirus HKU1 (PCR) Not detected (Not Detect) Coronavirus 229E (PCR) Not detected (Not Detect) SARS-CoV-2 (PCR) Not detected (Not Detecte) Coronavirus NL63 (PCR) Not detected (Not Detect) Human Metapneumovir PCR Not detected (Not Detect) Influenza Type A (PCR) Not detected (Not Detect) Influenza Type B (PCR) Not detected (Not Detect) M. pneumoniae (PCR) Not detected (Not Detect) Parainfluenza 1 (PCR) Not detected (Not Detect) Parainfluenza 2 (PCR) Not detected (Not Detect) Parainfluenza 3 (PCR) Not detected (Not Detect) Parainfluenza 4 (PCR) Not detected (Not Detect) RSV (PCR) Not detected (Not Detect) Entero/Rhino (PCR) Not detected (Not Detect) Imaging Data Chest x-ray: Radiologist's Impression: PROCEDURE: XR CHEST 1V INDICATIONS: SOB TECHNIQUE: One view of the chest was acquired. COMPARISON: [facility], , XR CHEST 1 VIEW, 01/14/2024, 15:40. FINDINGS: Surgical changes and devices: None. Lungs and pleura: Lungs are clear. No pleural effusions or pneumothorax. Mediastinum: Mediastinal contours appear normal. Heart size is normal. Bones and chest wall: No suspicious bony lesions. Overlying soft tissues appear unremarkable. IMPRESSION: No acute cardiopulmonary abnormality is seen. MDM Narrative Medical decision making narrative: Chest x-ray is negative. Respiratory panel is negative. She has had symptoms for several months. No indication for repeat antibiotics or steroids. She was afebrile. Unfortunately not much more out of the emergency department except for adding Tessalon to try to help with her cough. She does need a follow-up with ENT. She was given return precautions. She expressed understanding and agreement. Discharge Plan Departure Patient Disposition: Home Clinical Impression: Sinus congestion Instructions: Antihistamine/Decongestant (By mouth) Activity Restrictions/Additional Instructions: Continue to take all of your medication as directed and. Keep your scheduled appointment with the ear nose and throat doctors at the end of the month. Contact your primary doctor for a follow-up. Prescriptions: No Action metoclopramide HCl 5 mg tablet 5 mg PO Q8HR PRN (Reason: nausea and vomiting) Qty: 10 0RF cyclobenzaprine 10 mg tablet 10 mg PO TID PRN (Reason: muscle spasm) Qty: 20 0RF lidocaine 4 % adhesive patch,medicated 1 patch topical BID PRN (Reason: pain) Qty: 15 0RF methylprednisolone [Medrol (Rock)] 4 mg tablets,dose pack See Rx Instructions .ROUTE .COMPLEX Qty: 21 0RF Rx Instructions: orally per package directions fluticasone furoate 100 mcg/actuation blister with device 1 inh inhalation DAILY Qty: 14 0RF hydrocodone-acetaminophen 5-325 mg tablet 1 tab PO Q6H PRN (Reason: pain and cough) Qty: 10 0RF ondansetron 4 mg tablet,disintegrating 4 mg PO TID-QID PRN (Reason: nausea and vomiting) Qty: 10 0RF promethazine-codeine 6.25-10 mg/5 mL syrup 5 ml PO Q4-6H PRN (Reason: cough) Qty: 118 0RF cyclobenzaprine 10 mg tablet 10 mg PO TID Qty: 30 0RF Referrals: Miscellaneous,Doctor, MD [Primary Care Provider] - Stand Alone Forms: Patient Portal/API
[2024-03-12] MEDS: BENZONATATE 100 MG CAPSULE PO (00:31)
[2024-03-12 00:35] VITALS: BP 172/105; PULSE 70; RESP 15; O2SAT 98
== END 2024-03-12 00:36 | disposition home or self-care (01) ==
PROVIDERS: Emergency Provider Emergency Medicine
DX: R06.02 Shortness of breath (principal); R05.9 Cough, unspecified; R09.81 Nasal congestion
CPT/HCPCS: 71045; 87633; 99283